=== PATIENT | female | born 1945 | race Caucasian/White ===

== ENCOUNTER 2022-07-20 16:25 | Outpatient (REF) | payer MEDICARE, SELFPAY ==
[2022-07-22 12:53] LABS: Immunoglobulin A 175 mg/dL (70-320)
[2022-07-23 05:52] LABS: Gliadin Deamidated IgA Ab <1.0 U/mL; Gliadin Deamidated IgG Ab <1.0 U/mL; Transglutaminase Ab IgG <1.0 U/mL; Transglutaminase IgA <1.0 U/mL
[2022-07-27 15:27] LABS: Endomysial IgA Antibody Negative (Negative)
== END 2022-07-20 16:26 | disposition home or self-care (01) ==
LOC: HO.LAB 16:25
PROVIDERS: PCP Internal Medicine; Visit Provider Internal Medicine
DX: R19.7 Diarrhea, unspecified (principal)
CPT/HCPCS: 36415; 82784; 86231; 86258; 86364

== ENCOUNTER 2022-08-30 09:22 | Day surgery (SDC) | payer MEDICARE, SELFPAY ==
[2022-08-30 09:39] VITALS: BMI 24.5
[2022-08-30 09:46] VITALS: BP 162/63; PULSE 54; RESP 16; TEMP 36.2; O2SAT 99
--- NOTE | 2022-08-30 10:45 | HO.ANESPROP2 ---
[facility] Past Medical History Medical History (Updated 08/30/22 @ 09:44 by Lucila Mitchell RN) Afib Anemia Elevated LFTs HTN (hypertension) IBS (irritable bowel syndrome) Non-Hodgkin lymphoma Non-insulin dependent diabetes mellitus Overactive bladder Sepsis Family History Family history of problems with anesthesia: No Surgical History Surgical History (Updated 08/30/22 @ 09:37 by Lucila Mitchell RN) History of knee surgery Hx of cholecystectomy Hx of colonoscopy S/P complete hysterectomy Status post bilateral knee replacements History of Problems with Anesthesia: No Social History Social History Patient Tobacco Use Status: Never used Tobacco Use of substances other than those prescribed or required for medical reasons: No Are you DNR?: No Advance Directives: No Advance Directives Information Provided: Yes Meds Allergies Allergy/AdvReac Type Severity Reaction Status Date / Time ciprofloxacin [Cipro] Allergy Unknown Hives Verified 08/30/22 09:39 Iodinated Contrast Media Allergy Unknown ANAPHYLAXIS Verified 08/30/22 09:39 [IV CONTRAST] levofloxacin [From LEVAQUIN] Allergy Unknown HIVES Verified 08/30/22 09:39 Sulfa (Sulfonamide Allergy Unknown HIVES Verified 08/30/22 09:39 Antibiotics) sulfamethoxazole Allergy Unknown HIVES Verified 08/30/22 09:39 [From BACTRIM] trimethoprim [From BACTRIM] Allergy Unknown HIVES Verified 08/30/22 09:39 ct dye Allergy Unknown Anaphylaxis Uncoded 08/30/22 09:39 iv dye Allergy Unknown Anaphylaxis Uncoded 08/30/22 09:39 Active Medications: Current Medications Sodium Biphosphate/Sodium Phosphate (Sodium Phosphate,Scurry-Dibasic 133 Ml Enema) 133 ml SD ONCE PRN PRN Reason: Poor Colonoscopy Prep Results Home Medications Medication Instructions Recorded Confirmed Last Taken Type apixaban 5 mg tablet (Eliquis) 1 tab PO BID 08/25/22 08/25/22 08/27/22 History flecainide 50 mg tablet 1 tab PO BID 08/25/22 08/25/22 08/30/22 08:00 History hydrochlorothiazide 12.5 mg tablet 1 tab PO DAILY 08/25/22 08/25/22 Unknown History lisinopril 20 mg tablet 1 tab PO BID 08/25/22 08/25/22 08/30/22 08:00 History metoprolol tartrate 25 mg tablet 0.5 tab PO 08/25/22 08/30/22 08:00 History Exam Exam Date and Time: August 30, 2022 1045 Height,Weight and Vital Signs: Height 5 ft 10 in Weight 77.564 kg Last Vital Signs Temp 97.1 F 08/30/22 09:46 Pulse 54 08/30/22 09:46 Resp 16 08/30/22 09:46 BP 162/63 H 08/30/22 09:46 Pulse Ox 99 08/30/22 09:46 O2 Del Method 08/30/22 09:46 Airway Mallampati Class: II TM Dist: >3cm Neck ROM: Full Assessment and Plan Assessment Anesthesia Assessment: Anesthesia Plan Discussed and Chart Reviewed Final Anesthetic Review Family History of Problems with Anesthesia: No History of Problems with Anesthesia: No NPO: Yes ASA Class: II Final Preanesthetic Review: No Changes in Pt Med Stat, Meds/Allgs Chart Reviewed, Consent Obtained/Reviewed and Anes Risks/Benef Reviewed Patient Risk: Low Procedure Risk: Low Anesthetic Plan Anesthetic Plan: MAC: Disposition: Standard PACU
[2022-08-30] MEDS: Lactated Ringers 1,000 ML 100 ML IVCONT (10:49)
[2022-08-30 11:47] VITALS: BP 126/52; PULSE 58; RESP 16; TEMP 36.1; O2SAT 98
--- NOTE | 2022-08-30 11:52 | P.BOP_ITS ---
Brief Operative Note Date of Service: 08/30/22 Pre-op diagnosis: Screening, diarrhea Post-op diagnosis: other (Colon polyp, R/O microscopic colitis) Procedure: Colonoscopy to the cecum and TI with biopsies, and bx/removal of polyp Surgeon: José Manuel Agosto Anesthesia: MAC Was an Microarray Operations Vice President used for this Procedure?: No Estimated blood loss (mL): 2.0 Pathology: other (A. Ascending colon B. Ascending colon polyp C. Descending colon) Condition: stable Disposition: PACU
[2022-08-30 12:02] VITALS: BP 133/52; PULSE 56; RESP 16; TEMP 36.1; O2SAT 100
--- NOTE | 2022-08-30 12:08 | OP_ITS ---
SURGEON: José Manuel Agosto MD INDICATIONS: The patient presents for evaluation of intermittent diarrhea, family history of colon cancer, colorectal cancer screening. Full consent has been obtained from her for this, including risks of bleeding and perforation. PREOPERATIVE DIAGNOSIS: POSTOPERATIVE DIAGNOSIS: PROCEDURE PERFORMED: Colonoscopy to cecum and terminal ileum with biopsies, and biopsy removal of polyp. ESTIMATED BLOOD LOSS: COMPLICATIONS: ANESTHESIA: Monitored anesthesia care. ASSISTANTS: SPECIMENS: PREOPERATIVE DIAGNOSES: Intermittent diarrhea, family history of colon cancer, colorectal cancer screening. POSTOPERATIVE DIAGNOSES: Intermittent diarrhea, family history of colon cancer, colorectal cancer screening, small colon polyp, rule out microscopic colitis, diverticulosis, and internal hemorrhoids. DESCRIPTION OF PROCEDURE: The patient was placed in the left lateral decubitus position. The digital rectal exam revealed no abnormalities. The Olympus video pediatric colonoscope was entered into the rectum and advanced easily to the cecum. Once in the cecum, I did identify normal-appearing cecal pouch with appendiceal orifice and a normal-appearing ileocecal valve. The terminal ileum was cannulated and appeared normal. The scope was withdrawn back in the colon. The entire cecum and ileocecal valve appeared normal. The scope was then slowly withdrawn assessing all mucosal surfaces carefully. Preparation was excellent. In the ascending colon was a flat approximately 3 or 4 mm polyp, which was biopsied and completely removed with a cold biopsy forceps. I did not visualize any other polyps, colitis, nor angiodysplasia. There was a mild amount of sigmoid diverticulosis. I did obtain random biopsies in the ascending and descending colon. In the rectum, scope was retroflexed visualizing internal hemorrhoids, but no other pathology. The rectal mucosa appeared normal. The scope was straightened and withdrawn from the patient. She tolerated the procedure well and was returned to the recovery area in stable condition. IMPRESSION: 1. Small colon polyp, status post biopsy and removal. 2. Rule out microscopic colitis. 3. Diverticulosis. 4. Internal hemorrhoids. PLAN: The results of the biopsies will be checked. Given these minimal findings, her multiple previous colonoscopies, and her age, I do not think she will need any further screening colonoscopies at this point. She will otherwise see me on a p.r.n. basis. She was advised to resume her Eliquis in 48 hours. She was advised not to use any aspirin or NSAIDs for least 1 week, but preferably long-term given that she is on the Eliquis. MD NORM Del Toro/DOMONIQUE / [phone]
[2022-08-30 12:17] VITALS: BP 117/60; PULSE 56; RESP 16; TEMP 36.1; O2SAT 98
== END 2022-08-30 13:24 | disposition home or self-care (01) ==
PROVIDERS: PCP Internal Medicine; Visit Provider Internal Medicine
PROC: 0DJD8ZZ Inspection of Lower Intestinal Tract, Via Natural or Artificial Opening Endoscopic (ICD-10-PCS; CPT 45378; principal; 2022-08-30 10:40)
DX: Z12.11 Encounter for screening for malignant neoplasm of colon (principal); D12.2 Benign neoplasm of ascending colon; K57.30 Diverticulosis of large intestine without perforation or abscess without bleeding; K64.8 Other hemorrhoids; R19.7 Diarrhea, unspecified; Z80.0 Family history of malignant neoplasm of digestive organs; I10 Essential (primary) hypertension; E11.9 Type 2 diabetes mellitus without complications; I48.91 Unspecified atrial fibrillation; Z79.01 Long term (current) use of anticoagulants; Z79.899 Other long term (current) drug therapy; Z88.1 Allergy status to other antibiotic agents; Z88.2 Allergy status to sulfonamides; Z88.8 Allergy status to other drugs, medicaments and biological substances
CPT/HCPCS: 45380; 88305

== ENCOUNTER 2023-06-21 14:50 | Emergency (ER) | payer MEDICARE, SELFPAY ==
--- NOTE | ~2023-06-21 | XR_ITS ---
EXAMINATION: XR KNEE, RIGHT CLINICAL INFORMATION: Knee pain after fall COMPARISON: None available. TECHNIQUE: Four views of the right knee. FINDINGS: Right total knee replacement has been performed and prosthetic components appear appropriate in position. Alignment is satisfactory. No fracture or dislocation. Very small suprapatellar effusion not excluded. XR/XR knee RT 3V IMPRESSION: Right total knee replacement. No acute bony pathology. Question small suprapatellar effusion.
--- NOTE | ~2023-06-21 | CT_ITS ---
STUDY: Unenhanced CT of the head, facial bones and cervical spine INDICATION: Head strike, on Sameera COMPARISON: 08/17/2018 brain TECHNIQUE: Continuous helical imaging obtained through the head, facial bones and cervical spine without IV contrast. Reconstructed images performed in coronal and sagittal planes. This CT examination was performed using dose optimization techniques as appropriate, variously including the following: *Automated exposure control *Adjustment of mA and/or kV according to patient size (this includes techniques or standardized protocols for targeted exams where dose is matched to indication/reason for exam; i.e. extremities or head) *Use of iterative reconstruction technique TOTAL EXAM DLP: 985 mGy-cm FINDINGS: HEAD: No intracranial hemorrhage, extra-axial fluid collections or cranial fractures identified. 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 No evolving infarct, mass effect or midline shift seen. There has been interval development of left temporal calcific densities adjacent to the inner table. These appear to be associated with 1.8 cm soft tissue mass. Findings were barely visible in 2012 lens extractions have been performed. Sinuses and mastoids are free of disease. No cranial fractures. Soft tissues are unremarkable. FACIAL BONES: Right facial, right periorbital and right forehead soft tissue swelling. Orbital, maxillary markham, zygomatic arches, nasal bones, anterior nasal spine, maxilla and mandible are intact. Mild webs within the maxillary sinuses, right greater than left. Right posterior nasopharyngeal asymmetric soft tissue. Oropharynx, hypopharynx unremarkable. Bilateral submandibular lymphadenopathy, largest node on the left measures 1.9 cm. 1 cm probable left intraparotid lymph node. Vascular calcifications. CERVICAL SPINE: C5-C6 disc space narrowing. No significant spinal canal or neural foraminal narrowings No fracture or traumatic subluxation. Alignment is satisfactory. Posterior elements are aligned, odontoid is intact and no prevertebral soft tissue swelling seen. Left thyroid calcifications. Nonspecific cervical lymph nodes. Vascular calcifications. Mild atelectasis lung apices. CT/CT cervical spine wo IV con IMPRESSION: Right facial, periorbital and forehead soft tissue swelling. No significant soft tissue hematomas, acute intracranial pathology, facial, cervical fractures or subluxations after fall. Interval development of potential partially calcified left temporal mass adjacent to the inner table, question meningioma. MRI recommended. Bilateral submandibular lymphadenopathy, left greater than right. Possible left intraparotid lymph node. Consider ultrasound. Indeterminate right posterior nasopharyngeal soft tissue density. Recommend direct visualization.
--- NOTE | 2023-06-21 15:00 | ED.HEATRA ---
HPI - Head Injury General Chief complaint: Fall Stated complaint: R Side Facial Injury 06/21/23 Time Seen by Provider: 06/21/23 17:56 Source: patient, RN notes reviewed and old records reviewed Mode of arrival: ambulatory Limitations: no limitations History of Present Illness HPI Narrative: A 77-year-old female presents for evaluation after a fall. The sidewalk hitting the right side her face. She denies any loss of consciousness. She reports ?eyelid there for just a 2nd to gather myself, but I was able to get myself up. I called my doctor to tell him that I fell and he told me to come to the hospital because of the blood thinner Patient is on Eliquis for AFib She denies any chest pain, shortness of breath, palpitations She has mild right knee pain after the fall No other complaints or concerns Related Data Home Medications Medication Instructions Recorded Confirmed apixaban 5 mg tablet (Eliquis) 1 tab PO BID 08/25/22 08/25/22 flecainide 50 mg tablet 1 tab PO BID 08/25/22 08/25/22 hydrochlorothiazide 12.5 mg tablet 1 tab PO DAILY 08/25/22 08/25/22 lisinopril 20 mg tablet 1 tab PO BID 08/25/22 08/25/22 metoprolol tartrate 25 mg tablet 0.5 tab PO 08/25/22 Allergies Allergy/AdvReac Type Severity Reaction Status Date / Time ciprofloxacin [Cipro] Allergy Unknown Hives Verified 08/30/22 09:39 Iodinated Contrast Media Allergy Unknown ANAPHYLAXIS Verified 08/30/22 09:39 [IV CONTRAST] levofloxacin [From LEVAQUIN] Allergy Unknown HIVES Verified 08/30/22 09:39 Sulfa (Sulfonamide Allergy Unknown HIVES Verified 08/30/22 09:39 Antibiotics) sulfamethoxazole Allergy Unknown HIVES Verified 08/30/22 09:39 [From BACTRIM] trimethoprim [From BACTRIM] Allergy Unknown HIVES Verified 08/30/22 09:39 ct dye Allergy Unknown Anaphylaxis Uncoded 08/30/22 09:39 iv dye Allergy Unknown Anaphylaxis Uncoded 08/30/22 09:39 Review of Systems Constitutional: Constitutional: Denies headache(s) ENT: Denies vertigo, Denies dizziness and Denies headache(s) Cardiovascular: Cardiovascular: Denies chest pain, Denies syncope, Denies rapid heart rate and Denies dyspnea Respiratory: Respiratory: Denies cough and Denies dyspnea Gastrointestinal: Gastrointestinal: Denies abdominal pain, Denies nausea and Denies vomiting Musculoskeletal: Musculoskeletal: Denies back pain Integumentary/Breasts: Skin/Breast: Reports other (Bruising) Neurologic: Denies vertigo, Denies dizziness, Denies syncope and Denies headache(s) PMFSH Past Medical History Medical History (Updated 06/21/23 @ 18:11 by Edgar Zhang) Anemia Sepsis Overactive bladder Non-Hodgkin lymphoma Afib IBS (irritable bowel syndrome) Elevated LFTs Non-insulin dependent diabetes mellitus HTN (hypertension) Surgical History Hx of breast surgery History of knee surgery Hx of colonoscopy Status post bilateral knee replacements Hx of cholecystectomy S/P complete hysterectomy Social History Social History Alcohol intake: never Patient Tobacco Use Status: Never used Tobacco Smoked in Last 30 Days: No Use of substances other than those prescribed or required for medical reasons: No Advance Directives: Yes Advance Directives Information Provided: No Advance Directives on File: No Physical Exam Vital Signs: Vital Signs: Last Vital Signs Temp 98.0 F 06/21/23 18:00 Pulse 62 06/21/23 18:00 Resp 18 06/21/23 18:00 BP 178/67 H 06/21/23 18:00 Pulse Ox 100 06/21/23 18:00 O2 Del Method Room Air 06/21/23 18:00 BMI result Body Mass Index 26.5 Const: General: healthy appearing, comfortable, no acute distress, alert and awake Nutritional Appearance: well nourished Orientation/consciousness: patient oriented x3 Eyes: Conjunctivae: conjunctivae normal Sclerae: sclerae normal Corneas: corneas normal Pupils: Equal, round and reactive pupils present EOM: EOMs intact bilaterally Neck: Neck: Yes full ROM Resp: Effort & Inspection: normal respiratory effort, able to speak in complete sentences and not labored Cardio: Rate: regular rate Rhythm: abnormal rhythm irregularly irregular Skin: General skin exam: elasticity normal Neuro: General: patient oriented x3 Cranial nerves: Yes CN's II-XII intact bilaterally, Yes Equal, round and reactive pupils present and Yes Bilaterally intact EOM present Cognition (Neuro): normal cognition Course Course Course Narrative: This is an RME: Additional HPI, ROS, PE not included below will be deferred to primary provider. This is a [id number]-female, with a hx of atrial fibrillation on eliquis, presenting to the ER with complaints of head strike. She had a mechanical fall where she struck her right knee and then struck her right side of her face. VSS. Right orbital ecchymosis noted. no midline c spine tenderness. TTP to the right knee. Plan: Head ct, c spine, facial bones, right knee xray ordered. Medications Administered Discontinued Medications Generic Name Dose Route Start Last Admin Trade Name Freq PRN Reason Stop Dose Admin Acetaminophen 650 mg 06/21/23 16:14 06/21/23 16:16 Acetaminophen 325 Mg Tablet PO 06/21/23 16:15 650 mg ONCE ONE Administration Medical Decision Making Medical Decision Making MDM Narrative: 77-year-old female presents for evaluation after a fall. She had a head strike no loss of consciousness. She has no neuro deficits. CT imaging shows no traumatic injuries. He x-ray of the right knee does not show any traumatic injury. Patient's CT scan of however show a left temporal mass consistent with a likely meningioma. I discussed this with the patient, this would be a unknown diagnosis to her. She denies any frequent headache, neuro deficits or signs or symptoms. She has no blurry vision, nausea. Made very clear to the patient that is supports she follows up with her primary doctor to have an MRI out patient basis. She understands this call tomorrow to schedule appointment Differential Diagnosis Differential Diagnoses: The differential diagnosis associated with the presentation includes Intracranial mass Calvarial fracture Contusion Hematoma Right knee pain Right knee dislocation Independent Interpretation I performed an independent interpretation of an: Plain X-Ray (No acute fracture of the right knee) and CT Scan (No intracranial hemorrhage) Radiology Impression Discussion of test interpretation with radiology: I have reviewed the radiologist's reading. (Left temporal mass possibly meningioma) Tests considered The following testing was considered but not selected: MRI of the brain, but this was felt to be appropriate for an outpatient basis Discharge Plan Discharge Clinical Impression: Contusion Patient Disposition: Home, Self-Care Instructions: Contusion in Adults (ED) Additional Instructions: Your CT scans and x-ray of your knee did not show any significant traumatic injuries. However, there was an incidental finding of a brain mass in the left temporal region This is appears most consistent with a meningioma This does need to be followed up with your primary doctor You need an MRI within the next few weeks it better evaluate this You may return to the ER for any new or worsening symptoms Apply ice to the sore area of bony and face. Use Tylenol for discomfort Prescriptions: No Action lisinopril 20 mg tablet 1 tab PO BID flecainide 50 mg tablet 1 tab PO BID metoprolol tartrate 25 mg tablet 0.5 tab PO hydrochlorothiazide 12.5 mg tablet 1 tab PO DAILY Eliquis 5 mg tablet 1 tab PO BID Interventions: ED Discharge Assessment Last Done: 06/21/23 18:37
[2023-06-21 15:02] VITALS: BP 147/108; PULSE 62; RESP 18; TEMP 36.2; O2SAT 100; BMI 26.5
[2023-06-21] MEDS: Acetaminophen 325 MG TABLET 650 MG PO (16:16)
--- NOTE | 2023-06-21 17:58 | PC.NURSE ---
patient a&ox3, vss, pt previously had scans which have been resulted- pt awaiting provider to review and discuss scans with her, pt currently denying pain/discomfort, friend at bedside.pt has notable ecchymosis and some mild swelling to rt face, will continue to monitor
[2023-06-21 18:00] VITALS: BP 178/67; PULSE 62; RESP 18; TEMP 36.7; O2SAT 100
== END 2023-06-21 18:37 | disposition home or self-care (01) ==
PROVIDERS: Emergency Provider Internal Medicine; PCP Internal Medicine
DX: S80.01XA Contusion of right knee, initial encounter (principal); S00.11XA Contusion of right eyelid and periocular area, initial encounter; W01.0XXA Fall on same level from slipping, tripping and stumbling without subsequent striking against object, initial encounter; M25.561 Pain in right knee; R93.0 Abnormal findings on diagnostic imaging of skull and head, not elsewhere classified; E11.9 Type 2 diabetes mellitus without complications; I10 Essential (primary) hypertension; I48.91 Unspecified atrial fibrillation; Z79.01 Long term (current) use of anticoagulants; Z79.899 Other long term (current) drug therapy; Y93.89 Activity, other specified; Y92.480 Sidewalk as the place of occurrence of the external cause; Y99.9 Unspecified external cause status
CPT/HCPCS: 70450; 70486; 72125; 73562; 99284

== ENCOUNTER 2025-05-15 20:09 | Observation (INO) | payer MEDICARE, SELFPAY ==
--- NOTE | ~2025-05-15 | MR_ITS ---
CLINICAL HISTORY: dizziness, weakness MR Brain without gadolinium Comparison: CT/SR - CT HEAD/BRAIN WO IV CON - 05/15/25 22:15 EDT Findings: No restricted diffusion. No intra-axial mass or hemorrhage. Redemonstration of a left temporal convexity 2.2 cm extra-axial dural-based lesion which demonstrated partial calcification on recent noncontrast head CT. No midline shift. No hydrocephalus. Vascular flow voids are intact. Mild generalized cerebral volume loss and mild periventricular subcortical T2/FLAIR hyperintensities consistent with chronic microvascular ischemic changes. Orbital contents are unremarkable. The sinuses and mastoid air cells are clear. No focal bone lesion. IMPRESSION: No acute intracranial disease. Mild generalized cerebral volume loss and chronic microvascular ischemic changes. Redemonstration of a left temporal convexity 2.2 cm extra-axial lesion, consistent with CT demonstrated partially calcified meningioma. This document has been electronically signed by: Juan Ahmadi MD on 05/16/2025 21:45:33
--- NOTE | ~2025-05-15 | CT_ITS ---
CLINICAL HISTORY: dizziness CT head without contrast Comparison: CT/REG/OR/SR - CT HEAD WITHOUT IV CONTRAST - 06/21/23 15:10 EDT Findings: No intra-axial mass, midline shift, hydrocephalus, or acute hemorrhage. Moderate atrophy-like change or white matter disease. Left basal ganglia chronic lacunar infarct again noted. The visualized paranasal sinuses and mastoid air cells are normal. The orbits are unremarkable. There is no acute fracture. IMPRESSION: 1. No acute intracranial findings. 2. Left basal ganglia chronic lacunar infarct. 3. Moderate atrophy-like change or white matter disease. This document has been electronically signed by: Juan Ahmadi MD on 05/15/2025 22:55:15
--- NOTE | ~2025-05-15 | US_ITS ---
EXAMINATION: BILATERAL CAROTID ULTRASOUND WITH DOPPLER HISTORY: dizziness, weakness COMPARISON: There are no prior studies available for comparison. TECHNIQUE: Real time and Color and Spectral doppler ultrasonography of the carotid and vertebral arteries was performed in multiple planes. FINDINGS: There is mild plaque in both carotid bulbs. Incidental note is made of subcentimeter thyroid nodules. VERTEBRAL FLOW DIRECTION: Antegrade bilaterally. PEAK SYSTOLIC VELOCITIES (in cm/sec): RIGHT: CCA: Prox: 118 Dist: 90.0 ICA: Prox: 110 Mid: 112 Dist: 89.5 ICA/CCA Ratio: 0.95 ECA: 152 Peak ICA end diastolic velocity (EDV): 25.4 LEFT: CCA: Prox: 98.8 Dist: 73.0 ICA: Prox: 99.4 Mid: 121 Dist: 109 ICA/CCA Ratio: 1.22 ECA: 121 Peak ICA end diastolic velocity (EDV): 29.8 US/US carotid duplex BI IMPRESSION: Findings consistent with 0-49% stenosis of the bilateral internal carotid arteries. Electronically signed by: José Manuel Crowley MD 05/16/2025 10:32 AM EDT
[2025-05-15 20:17] VITALS: BP 167/55; PULSE 70; RESP 16; TEMP 36.6; O2SAT 99; BMI 26.9
--- NOTE | 2025-05-15 20:22 | ECG_ITS ---
Test Reason : DIZZNESS Blood Pressure : */* mmHG Vent. Rate : 67 BPM Atrial Rate : 67 BPM P-R Int : 292 ms QRS Dur : 94 ms QT Int : 424 ms P-R-T Axes : 40 21 51 degrees QTcB Int : 448 ms Sinus rhythm with 1st degree A-V block Otherwise normal ECG When compared with ECG of 11-Feb-2013 11:04, No significant changes seen Referred By: Generic ED Physician Electronically Signed By: Az Davidson
[2025-05-15 20:26] LABS: Glucose, Whole Blood 196 mg/dL (60-115)
[2025-05-15 20:27] VITALS: BP 170/60; PULSE 82; O2SAT 100
[2025-05-15 20:37] LABS: MANUAL DIFF FLAG NO
[2025-05-15 20:38] LABS: Hematocrit 31.1 % (37.0-47.0); Hemoglobin 11.0 g/dl (12.0-16.0); Imm Gran Abs Auto 0.04 X10*3/uL (0.00-0.03); Imm Gran Pct Auto 0.6 % (0.0-0.4); Lymphocytes Absolute Auto 1.0 X10*3/uL (1.2-4.9); Mean Corpuscular HGB Conc 35.4 g/dl (31.0-35.0); Mean Corpuscular Hemoglobin 30.1 pg (27.0-33.0); Mean Corpuscular Volume 85.2 fL (80.0-98.0); NRBC Abs Auto 0.000 X10*3/uL (0.0-0.012); NRBC Pct Auto 0.0 /100WBC (0.0-0.2); Platelet Count 163 X10*3/uL (160-400); Red Blood Count 3.65 X10*6/uL (4.20-5.50); White Blood Count 7.3 X10*3/uL (4.8-10.8)
--- OUTSIDE RECORDS SUMMARY | 2025-05-15 20:41 | XMS_ITS | Clinical Summary ---
Author Organization [facility] Address [address] [place] [id number] Phone Care Team Providers Care Waste Reclaimer Name Role Phone Fili Choi MD Primary Care Provider Allergies Active Allergy Reactions Criticality Noted Date Comments Cephalexin 01/11/2018 Keflex Ciprofloxacin 01/11/2018 Iodinated Contrast Media 08/10/2017 Levofloxacin 08/10/2017 Levaquin Nitrofurantoin Monohyd/M-Cryst Hives 12/10 Macrobid Sulfa (Sulfonamide Antibiotics) 05/2017 Sulfamethoxazole-Trimethoprim 2016 Bactrim Medications apixaban (ELIQUIS) 5 mg tablet Take by mouth every 12 (twelve) hours. Active MINERALS ORAL Take by mouth. Active hydroCHLOROthiazid e 12.5 mg tablet TAKE ONE TABLET BY MOUTH EVERY DAY 90 tablet 3 4 Active metoprolol tartrate (LOPRESSOR) 25 mg tablet Take 0.5 tablets (12.5 mg total) by mouth 2 (two) times a day. Active atorvastatin (LIPITOR) 20 mg tabletIndications: Coronary artery calcification Take 1 tablet (20 mg total) by mouth 1 (one) time each day. 30 each 11 5 02/02/20 26 Active flecainide (TAMBOCOR) 50 mg tablet TAKE ONE TABLET BY MOUTH TWICE A DAY 180 tablet 2 5 Active lisinopriL (PRINIVIL,ZESTRIL) 20 mg tablet TAKE ONE TABLET BY MOUTH TWICE A DAY 180 tablet 2 5 Active Active Problems Problem Noted Date Diagnosed Date Diabetes mellitus type 2, co ntrolled, without complications [place] [place] [facility] V28) 05/30/2024 Type 2 diabetes mellitus wit hout complication, without long-term current use of insulin ([facility] V24, [facility] V28) 05/30/2024 Meningioma ([facility] [place] [facility] [place] 09/07/2023 Atrial fibrillation ([facility] [place] [facility] [place]) 1 10/22/2018 Assessment & Plan (01/03/2025 10:50 AM EDT): Patient denies perception of recurrence of arrhythmia since she wore her monitor. As outlined above 30-day R OCT did not reveal any sustained atrial or ventricular arrhythmias, pauses or prolonged episodes of bradycardia. The patient is wondering if she can take an extra dose of metoprolol should she experience a prolonged episode of atrial fibrillation. He has shared decision making, we have decided that she will take an extra dose of metoprolol should she feel increased episode of palpitations. I did encourage patient to seek ER should she have associated symptoms of dizziness, lightheadedness, presyncope, syncope or shortness of breath. Triggers of atrial fibrillation such as increased caffeine or alcohol intake, dehydration, untreated sleep apnea, infection were discussed with patient. She will continue on her current dose of Eliquis as her age is less than 80 years and her weight is greater than 60 kg. Her [id number] score is 4 for age greater than 75, gender modifier and hypertension. Educated on risks and benefits of continuing with anticoagulation including increased risk for hemorrhage and decreased risk for stroke. Encouraged to seek emergent medical attention should the patient sustain a fall involving a head strike. The patient understands these risks and agrees to continue. At this time, she will continue on her current dose of flecainide and metoprolol. We will be updating stress testing to further evaluate for any structural abnormalities in light of her complaints of chest discomfort. Benign paroxysmal positional vertigo 08/22/2019 Diabetic peripheral neuropathy ([facility] [place], [facility] V28) 08/22/2019 Difficult or painful urination 08/22/2019 Discharge from [facility] 08/22/2019 Essential hypertension 08/22/2019 Overview (05/30/2024): Last Assessment & Plan: Well-controlled during today's exam with a reading of 120/82. Will continue on her current dose of lisinopril and hydrochlorothiazide. Educated on the importance of diet lifestyle modification to help further assist in lowering blood pressure. Encouraged to follow low-salt low-fat diet, make purposeful strides towards weight loss, and engage in routine aerobic exercise as tolerated. Assessment & Plan (01/03/2025 10:50 AM EDT): Well-controlled during today's exam with a reading of 128/66. She will continue on her current dose of lisinopril and hydrochlorothiazide. Educated on the importance of diet lifestyle to help further assist in reducing blood pressure. The patient was encouraged to follow low-salt low-fat diet, make purposeful strides towards weight loss, and engage in routine aerobic exercise as tolerated. Follicular low grade B-cell lymphoma ([facility] V24, [facility] V28) 08/22/2019 Gastroesophageal reflux disease 08/22/2019 Left sided abdominal pain 08/22/2019 Osteoarthritis of knee 08/22/2019 Recurrent urinary tract infection 08/22/2019 Retinal tear 08/22/2019 Urge incontinence of urine 08/22/2019 Urinary tract infectious disease 08/22/2019 Anemia 08/24/2017 Follicular lymphoma ([facility] V24, [facility] V28) 1 10/12/2016 Obstructive sleep apnea syndrome 06/27/2017 Assessment & Plan (01/03/2025 10:50 AM EDT): We did discuss that the increase in heart palpitations could be attributed to untreated sleep apnea. She does inform me that she had historically she had tried to be compliant with her CPAP however it has been greater than 5 years and she has used machine. At this time she is not interested in pursuing updated sleep study as she does not feel that she could tolerate CPAP therapy at this time. She does understand that if she has increasing frequency and duration of her palpitations this could be an avenue worth exploring. Intraductal papilloma of breast 07/04/2016 Osteoporosis 09/29/2015 Social History Tobacco Use Types Packs/Day Years Used Date Smoking Tobacco: Never Smokeless Tobacco: Never Alcohol Use Standard Drinks/Week Comments No 0 (1 standard drink = 0.6 oz pur e alcohol) Comments Unknown Sex and Gender Information Value Date Recorded Sex Assigned at Not on file Legal Sex Female 8:39 PM EST Gender Identity Not on file Sexual Orientation Not on file Obstetrics History Last Filed Vital Signs Vital Sign Reading Time Taken Comments Blood Pressure 140/58 01/24/2025 10:00 AM EDT Pulse 69 01/03/2025 8:55 AM EDT Temperature 36.6 C (97.8 F) 09/07/2024 11:41 AM EST Respiratory Rate - - Oxygen Saturation 99% 01/03/2025 8:55 AM EDT Inhaled Oxygen Concentration - - Weight 83 kg (183 lb) 01/24/2025 9:46 AM EDT Height 177.8 cm (5' 10 ) 01/24/2025 9:46 AM EDT Body Mass Index 26.26 01/24/2025 9:46 AM EDT Plan of Treatment Upcoming Encounters Date Type Department Care Team (Late st Contact Info) Description 07/31/2025 9:50 AM EDT Office Visit [facility] [address] [facility] [address] [place] [address] Kristopher Greer MD [address] [address] 09/06/2025 11:30 AM EST Office Visit [facility] [address] [place] [address] Krista Marie MD [address] [place] [address] Health Maintenance Due Date Last Done Comments Diabetes: Annual Foot Exam 1955 Diabetes: Annual Retina Eye Exam 1955 Cholesterol Screening (Lipid Panel) 09/11/2022 Falls Risk Assessment 09/11/2022 Hepatitis C Screening 09/11/2022 Medicare Annual Wellness Visit 09/11/2022 Social Influencers of Health Screening 09/11/2022 Diabetes: Annual Urine Albumin-Creatinine Ratio (uACR) 09/17/2022 Diabetes: Blood Sugar Control Test (HGBA1C) 09/17/2022 RSV Immunization Adult Patients (1 - 1-dose 75+ series) 2022 COVID-19 Vaccine (6 - 2023- season) 2024 08/11/2023, 07/09/2022, 08/24/2021, Additional history exists Depression Screening 10/03/2024 Influenza Vaccine (#1) 2025 , 07/07/2023, 07/16/2022, Additional history exists Diabetes: Annual GFR (Glomerular Filtration Rate) 08/28/2025 08/28/2024 Hypertension/CHF/CAD Annual BMP Blood Test 08/28/2025 08/28/2024 Osteoporosis Screening (Bone Density Screening) 09/29/2025 09/29/2015 DTaP,Tdap,and Td Vaccines (3 - Td or Tdap) 10/19/2033 10/19/2023, 08/08/2014 Pneumococcal Vaccine: 50+ Years Completed 11/23/2016, 08/26/2015, 08/26/2010 Zoster Vaccines Completed 09/23/2018, 07/03, 09/23/2008 Breast Cancer Screening Discontinued 08/11/2020 HIB Vaccines Aged Out No longer eligi ble based on patient's age to complete this topic HPV Vaccines Aged Out No longer eligi ble based on patient's age to complete this topic Hepatitis A Vaccines Aged Out No long er eligible based on patient's age to complete this topic Hepatitis B Vaccines Aged Out No long er eligible based on patient's age to complete this topic IPV Vaccines Aged Out No longer eligi ble based on patient's age to complete this topic MMR Vaccines Aged Out No longer eligi ble based on patient's age to complete this topic Meningococcal ACWY Vaccine Aged Out N o longer eligible based on patient's age to complete this topic Meningococcal B Vaccine Aged Out No l onger eligible based on patient's age to complete this topic RSV Immunization Patients Under 20 months Aged Out No longer eligible based on patient's age to complete this topic Varicella Vaccines Aged Out No longer eligible based on patient's age to complete this topic Procedures Procedure Name Priority Date/Time Associated Diagnosis Comments COMPREHENSIVE METABOLIC PANEL Routine 08/28/2024 2:59 PM EST Other type of follicular lymphoma of lymph nodes of multiple regions (CMS/HCC V24, CMS/HCC V28) from Last 3 Months or Most Recently Relevant to Health Maintenance Results * (ABNORMAL) Comprehensive metabolic panel (08/28/2024 2:59 PM EST) Sodium 137 133 - 145 mmol/L LAB CHEMISTRY METHOD 08/28/2024 5:00 PM [facility] Potassium 4.2 3.5 - 5.5 mmol/L LAB CHEMISTRY METHOD 08/28/2024 5:00 PM [facility] Chloride 104 96 - 110 mmol/L LAB CHEMISTRY METHOD 08/28/2024 5:00 PM [facility] CO2 28 21 - 32 mmol/L LAB CHEMISTRY METHOD 08/28/2024 5:00 PM [facility] Anion Gap 5 3 - 11 LAB CHEMISTRY METHOD 08/28/2024 5:00 PM [facility] Glucose 124(H) 70 - 100 mg/dL LAB CHEMISTRY METHOD 08/28/2024 5:00 PM [facility] BUN 25 5 - 25 mg/dL LAB CHEMISTRY METHOD 08/28/2024 5:00 PM [facility] Creatinine 1.04 0.50 - 1.10 mg/dL LAB CHEMISTRY METHOD 08/28/2024 5:00 PM [facility] eGFR 56(L) >=60 mL/min/1. 73m2 LAB CHEMISTRY METHOD 08/28/2024 5:00 PM [facility] Comment:Calculation based on the Chronic Kidney Disease Epidemiology Collaboration (CKD-EPI) equation refit without adjustment for race. BUN/Creatinine Ratio 24.0 LAB CHEMISTRY METHOD 08/28/2024 5:00 PM [facility] Calcium 9.7 8.5 - 10.5 mg/dL LAB CHEMISTRY METHOD 08/28/2024 5:00 PM [facility] AST (SGOT) 20 10 - 42 unit/L LAB CHEMISTRY METHOD 08/28/2024 5:00 PM [facility] ALT (SGPT) 29 10 - 60 unit/L LAB CHEMISTRY METHOD 08/28/2024 5:00 PM [facility] Alkaline Phosphatase 75 42 - 121 unit/L LAB CHEMISTRY METHOD 08/28/2024 5:00 PM [facility] Total Protein 7.1 6.0 - 8.0 g/dL LAB CHEMISTRY METHOD 08/28/2024 5:00 PM [facility] Albumin 4.0 3.2 - 5.0 g/dL LAB CHEMISTRY METHOD 08/28/2024 5:00 PM [facility] Total Bilirubin 0.3 0.0 - 1.4 mg/dL LAB CHEMISTRY METHOD 08/28/2024 5:00 PM [facility] Blood Venous blood specimen / Unknown Venipuncture / Unknown 08/28/2024 2:59 PM EST 08/28/2024 4:36 PM EST Krista Marie MD LAB BLOOD ORDERABLE S Final Result [facility] [address] [place] [address], from Last 3 Months or Most Recently Relevant to Health Maintenance Insurance MEDICARE [facility] Care Teams Waste Reclaimer Relationship Specialty Start Date End Date Fili Choi MD [address] [facility] [address] [place], [place] PCP - General 08/17/13
--- OUTSIDE RECORDS SUMMARY | 2025-05-15 20:41 | XMS_ITS | Patient Health Record ---
Author Organization [facility] Address [address] [place] [address] Care Team Providers Care Top Ironer Name Role Phone Fili Choi MD Primary Care Provider Unav ailable Jody Carmen Unavailable [phone] Allergies Allergen (clinical drug ingredient) Drug/Non Drug Allergy documented on EMR Reaction Allergy Type Onset Date Status CT scan dye (uncoded) Unknown Allergy Active sulfamethoxazole / trimethoprim Bactrim Unknown Drug Allergy Active ciprofloxacin Cipro Unknown Drug Allergy Act anabelle Keflex Unknown Drug Allergy Active Sulfacet-R Unknown Drug Allergy Active Tomatoes hives Allergy Active Reason For Referral Diagnosis 1 Type 2 diabetes johanny itus with diabetic polyneuropathy (E11.42) Diagnosis 2 Tinea unguium (B35.1 ) Diagnosis 3 Other hammer toe(s) (acquired), right foot (M20.41) Diagnosis 4 Other hammer toe(s) (acquired), left foot (M20.42) Diagnosis 5 Pain in left toe(s) (M79.675) Diagnosis 6 Pain in right toe(s) (M79.674) Diagnosis 7 Pain in left foot (M 79.672) Diagnosis 8 Posterior tibial ten don dysfunction (PTTD) of left lower extremity (M76.822) Diagnosis 9 Neuritis (M79.2) Referring Provider First Name Fili Referring Provider Last Name Jimbo Referred Organization [facility] Maurilio Referred Provider Jody Carmen Referred Address [address] [facility],[place], [place],[address], Referred Provider Specialty Podiatry Referral Priority Routine Medications Medication SIG (Take, Route, Frequency, Duration) Notes Start Date End Date Status Gabapentin 300 MG 1 capsule Orally twice a day; Duration: 30 day(s) 04/15/2021 Not-Taking Metoprolol Tartrate Active Cranberry Not-Taking Extra Depth Orthopedic Shoes (1 Pair) with Customized Heat Molded Multidensity Innersoles (3 Pair) as directed Dx: NIDDM/Polyneuropathy (E11.42), Hammertoe Foot Deformity (M20.41,M20.42), Preulcerative Skin Lesion(s) (L85.1 06/12/2024 Active oxyBUTYnin Chloride ER Not-Taking Mantoloking 3-6-9 Not-Taki ng Multivitamin Active Pradaxa Not-Taking Vitamin C Active metFORMIN HCl 500 MG Orally once a day Active Milk Thistle Not-Gordy ing Estrace Not-Taking MSM Not-Taking diphenhydrAMINE HCl Not-Taking Multi Minerals-Amino Acids Not-Taking methylPREDNISolone N ot-Taking Flecainide Acetate 50 MG Orally twice a day Active Astragalus Root Not- Taking Eliquis 5 MG as directed Orally twice a day Active Biotene Dry Mouth Sensitive Not-Taking zzzCompression Stockings 20-30mm Hg . . .; Duration: . Not-Takin g hydroCHLOROthiazide 25 MG Orally Once a day Active Lisinopril 40 MG 1 tablet Orally Once a day Active Immunizations Vaccine Route Administration Date Status Comme nts Influenza Unknown 07/27/2015 Administered Influenza Unknown 08/03/2017 Administered Influenza Unknown 07/03/2018 Administered Influenza Unknown 07/03/2019 Administered Influenza Unknown 07/03/2020 Administered Influenza Unknown 08/03/2022 Administered Influenza Unknown 06/03/2023 Administered COVID-19 Moderna Vaccine Unknown 10/08/2020 Administered Second Dose: 03/23 Social History Tobacco Use: Social History Observation Description Date Details (start date - stop date) Never Smoker NA - NA Tobacco Use/Smoking Question Answer Notes Are you a: nonsmoker Additional Findings: Tobacco Non-User Current no n-smoker Alcohol Screen Question Answer Notes Did you have a drink containing alcohol in the p ast year? No Points 0 Interpretation Negative Tobacco use other than smoking: Question Answer Notes Are you an other tobacco user? No Problems Problem Type SNOMED Code ICD Code Onset Dates Problem Status W/U Status Risk Notes Problem Acquired hammer toe of right foot (6474334325324066 ) Other hammer toe(s) (acquired), right foot (M20.41) Active confirmed Problem Acquired hammer toe of left foot (9931565131904205 ) Other hammer toe(s) (acquired), left foot (M20.42) Active confirmed Problem Polyneuropathy due to type 2 diabetes mellitus (884107298) Type 2 diabetes mellitus with diabetic polyneuropathy (E11.42) Active confirmed Vital Signs Blood pressure diastolic 65 mm Hg 06/12/2024 Height 5ft 10in in 06/12/2024 Blood pressure systolic 125 mm Hg 06/12/2024 Weight 180 lbs 06/12/2024 BMI 25.82 kg/m2 06/12/2024 Encounters Encounter Location Date Provider Diagnosis [facility] [place] [address] [place] [address] 06/12/2024 Jody Kermit Type 2 diabetes mellitus with diabetic polyneuropathy E11.42 ; Other hammer toe(s) (acquired), right foot M20.41 and Other hammer toe(s) (acquired), left foot M20.42 Assessments Encounter Date Diagnosis (ICD Code) Assessment Notes Treatment Notes Treatment Clinical Notes Section Notes 06/12/2024 Type 2 diabetes mellitus with diabetic polyneuropathy (ICD-10 - E11.42) 06/12/2024 Other hammer toe(s) (acquired), right foot (ICD-10 - M20.41) Patient Educated with: DIABETIC FOOT CARE INSTRUCTIONS. pdf (DIABETIC FOOT CARE INSTRUCTIONS. pdf) 06/12/2024 Other hammer toe(s) (acquired), left foot (ICD-10 - M20.42) Plan Of Treatment Pending Test Test Name Order Date X ray : Foot, left 3V 09/01/2018 X ray : Foot, left 3V 04/15/2021 [id number] NAIL, 6 OR MORE 07/27/2016 [id number] NAIL, 6 OR MORE 01/27/2016 [id number] NAIL, 6 OR MORE 04/27/2016 [id number] NAIL, 1-5 12/07/2017 [id number] SKIN LESIONS, 2 TO 4 04/27/20 16 [id number] SKIN LESIONS, 2 TO 4 01/27/20 16 [id number] SKIN LESIONS, 2 TO 4 07/27/20 16 [id number]-[id number] SKIN LESIONS, 2 TO 4 12/08/19 18 Next Appt Details Provider Name:Jody Dawson Stacy dawson, 06/18/2025 11:00:00 AM, [address] [facility], [place], [address], Insurance Providers Payer Name Payer Address Payer Phone Subscriber Number Group Number Insured Name Patient Relationship to Insured Coverage Start Date Coverage End Date Medicare National Govt [employer] [address] [facility] [place] [address] [id number] Jolene Shah Self - patient is the insured [employer] [address] [place] [address] [id number] Jolene Shah Self - patient is the insured Medical (General) History Medical History History ICD Code Diverticulosis Anemia Arthritis Back,Hip,and Knee pain Cancer type II diabetes High blood pressure Warts Measles Mumps Chicken pox Joint implants/screws Transfusions Surgical History Surgery Date(Month/Year) knee surgery 2012 hysterectomy Hospitalization History Reason Date(Month/Year) [facility] - [facility] 05/2018 [facility]- [place]ell hit head 06/21/23 [facility] [place] - pt fell 08/17/18
--- OUTSIDE RECORDS SUMMARY | 2025-05-15 20:41 | XMS_ITS | Clinical Summary ---
Author Organization [facility] Address [address] [place] [address] Care Team Providers Care Salesperson Burial Plots Name Role Phone Fili Choi MD Primary Care Provider [phone] Allergies Active Allergy Reactions Criticality Noted Date Comments Sulfamethoxazole-Trimethoprim 2016 Ciprofloxacin 01/11/2018 Iodinated Contrast Media 08/10/2017 Cephalexin 01/11/2018 Levofloxacin 08/10/2017 Nitrofurantoin 01/11/2018 Sulfa Antibiotics 08/10/2017 Medications Medication Sig Dispensed Refills Start Date End Date Status lisinopril (PRINIVIL,ZESTRIL) tablet 40 mg Take 40 mg by mouth daily. 0 Active CRANBERRY, VACC OXYCOCCUS, PO Take by mouth daily. 0 Active Lactobacillus Rhamnosus, GG, (CULTURELLE PO) Take by mouth. 0 Active metoprolol succinate (TOPROL-XL) 24 hr tablet 50 mg Take 50 mg by mouth daily. 0 Active Trace Min [id number] (MINERALS PO) Take by mouth. 0 Active flecainide (TAMBOCOR) 50 MG tablet Take 50 mg by mouth 2 (two) times a day. 0 Active apixaban (ELIQUIS) 5 MG TABS tablet Take by mouth every 12 (twelve) hours. 0 Active Active Problems Problem Noted Date Diagnosed Date Meningioma 09/07/2023 Atrial fibrillation 08/22/2019 Benign paroxysmal positional vertigo 08/22/2019 Diabetic peripheral neuropathy 08/22/2019 Difficult or painful urination 08/22/2019 Discharge from nipple 08/22/2019 Essential hypertension 08/22/2019 Follicular low grade B-cell lymphoma 08/22/2019 Gastroesophageal reflux disease 08/22/2019 Left sided abdominal pain 08/22/2019 Menopause present 08/22/2019 Osteoarthritis of knee 08/22/2019 Recurrent urinary tract infection 08/22/2019 Retinal tear 08/22/2019 Urge incontinence of urine 08/22/2019 Urinary tract infectious disease 08/22/2019 Anemia 08/24/2017 Follicular lymphoma 08/12/2017 Obstructive sleep apnea syndrome 06/27/2017 Intraductal papilloma of breast 07/04/2016 Osteoporosis 09/29/2015 Diabetes mellitus type 2, un controlled, without complications Type 2 diabetes mellitus wit hout complication, without long-term current use of insulin Family History Medical History Relation Name Comments Cancer Brother colon Cancer Father pancreas Relation Name Status Comments Brother Father Social History Tobacco Use Types Packs/Day Years Used Date Smoking Tobacco: Never Smokeless Tobacco: Never Alcohol Use Standard Drinks/Week Comments No 0 (1 standard drink = 0.6 oz pur e alcohol) Sex and Gender Information Value Date Recorded Sex Assigned at Not on file Gender Identity Not on file Sexual Orientation Not on file Job Start Date Occupation Industry Not on file Not on file Not on file Last Filed Vital Signs Vital Sign Reading Time Taken Comments Blood Pressure 138/58 09/07/2023 10:43 AM EST Pulse 60 09/07/2023 10:43 AM EST Temperature 36.3 C (97.4 F) 09/07/2023 10:43 AM EST Respiratory Rate - - Oxygen Saturation 98% 09/07/2023 10:43 AM EST Inhaled Oxygen Concentration - - Weight 87.4 kg (192 lb 9.6 oz) 09/07/2023 10:43 AM EST Height 175.3 cm (5' 9 ) 09/07/2023 10:43 AM EST Body Mass Index 28.44 09/07/2023 10:43 AM EST Plan of Treatment Health Maintenance Due Date Last Done Comments Hepatitis C Screening 1945 COVID-19 Vaccine (#1) 1952 Depression Screening 1959 Preventative Health Evaluation 1965 Fall Risk Assessment 2012 Osteoporosis Screening (DEXA Scan) 2012 RSV Adult > 60+ Yrs or (1 - 1-dose 75+ series) 2022 DTap / Tdap / Td (2 - Td or Tdap) 08/08/2024 08/08/2014 Influenza Vaccine (#1) 2025 , 07/08/2020, 07/26/2019, Additional history exists Pneumococcal Vaccine Completed 11/23/2016, 08/26/2015, 08/26/2010 Shingrix-Zoster Vaccine Completed 09/23/2018, 07/21 Hepatitis B Vaccines Aged Out No long er eligible based on patient's age to complete this topic RSV Ped < 20 months Aged Out No longe r eligible based on patient's age to complete this topic Care Teams Salesperson Burial Plots Relationship Specialty [place] [address] [place] [id number] PCP - General Internal Medicine 08/04/17
--- OUTSIDE RECORDS SUMMARY | 2025-05-15 20:42 | XMS_ITS | Patient Health Record ---
Author Organization [facility] [place] Address [address] [place] [address] Care Team Providers Care Sexer Name Role Phone Fili Choi MD Primary Care Provider UnaJosé Manuel Bravo Unavailable [phone] Allergies Allergen (clinical drug ingredient) Drug/Non Drug Allergy documented on EMR Reaction Allergy Type Onset Date Status Levaquin Unknown Drug Allergy Active ciprofloxacin Cipro Unknown Drug Allergy Act anabelle sulfamethoxazole / trimethoprim Bactrim Unknown Drug Allergy Active Ct Scan Dye (uncoded) Unknown Allergy Active Sulfa Unknown Drug Allergy Active Reason For Referral No Information Medications Medication SIG (Take, Route, Frequency, Duration) Notes Start Date End Date Status Co Q-10 Active Ashwag[place]ha Active Berberine Complex Ac tive Eliquis 5 MG TAKE ONE TABLET BY MOUTH TWICE A DAY Oral for 90 Active Flecainide Acetate 50 MG TAKE ONE TABLET BY MOUTH TWICE A DAY Oral for 90 Active Lisinopril 20 MG 1 tablet Orally twic e a day Active Vitamin C Active Milk Thistle Active MSM Active Metoprolol Succinate ER 25 MG 1 tablet O rally twice a day Active hydroCHLOROthiazide 12.5 MG Oral for 90 Active Metoprolol Tartrate 25 MG TAKE ONE-HALF TABLET BY MOUTH TWICE A DAY IN THE MORNING AND IN THE EVENING Oral for 90 Active Immunizations Vaccine Route Administration Date Status Comme nts Influenza Unknown 07/16/2022 Administered Problems Problem Type SNOMED Code ICD Code Onset Dates Problem Status W/U Status Risk Notes Problem Colon cancer screening (486049724) Colon cancer screening (Z12.11) Active confirmed Problem Irritable bowel syndrome (68850451) Irritable bowel syndrome (K58.9) Active confirmed Problem Diarrhea (20588396) Diarrhea (R19.7) Active confirmed Problem History of polyp of colon (situation) (835467815) History of colon polyps (Z86.010) Active confirmed Problem Family History of Cancer of Colon (Situation) (062535811) Family history of colon cancer (Z80.0) Active confirmed Problem Diverticulosis of sigmoid colon (620877798) Diverticulosis of sigmoid colon (K57.30) Active confirmed Plan Of Treatment Pending Test Test Name Order Date CELIAC PANEL #10 07/20/2022 Pathology 08/30/2022 Future Test Test Name Order Date COLONOSCOPY 01/14/2015 COLONOSCOPY 07/20/2022 Insurance Providers Payer Name Payer Address Payer Phone Subscriber Number Group Number Insured Name Patient Relationship to Insured Coverage Start Date Coverage End Date MEDICARE OF [place] [address] [place] [address] [id number] SHERIF MCINTYRE Self - patient is the insured [employer] CLAIMS [address] [place] [address] [phone] [id number] SHERIF MCINTYRE Self - patient is the insured Medical (General) History Medical History History ICD Code Colonoscopy with removal of a hyperplastic [place] [address] Lars Kidd and a negative colonoscopy [place] [address] Gomez 10/16/2009 Colonoscopy with me --neg exept for an inflammatory polyp, diverticulosis, and internal hemorrhoids Hypertension NIDDM History of elevated LFT'S--h eterozygote for hemochromatosis---has not needed phlebotomy nor liver biopsy--w/u otherwise negative--c/w fatty liver Irritable bowel syndrome Atrial fibrillation Denies AR,CVA,Lung disease,renal disease Non-Hodgkin's lymphoma 4-sees Dr. Otoole at [facility]--currently observing--she has not required any type of treatment Sepsis and septic arthritis in knees as below Overactive bladder Negative screening colonoscopy with me i n March of 2015 Surgical History Surgery Date(Month/Year) Bilateral knee replacements in 2006 and 2009--then had a sepsis in 2012 and bilateral knee infections requiring surgeries and drainage, with revisions Cholecystectomy Complete hysterectomy
[2025-05-15 20:50] LABS: Alanine Aminotransferase 20 U/L (0-31); Albumin Level 4.6 g/dL (3.5-5.0); Alkaline Phosphatase 65 U/L (39-117); Anion Gap 18 (12-20); Aspartate Amino Transferase 23 U/L (5-31); Blood Urea Nitrogen 36 mg/dL (9-16); Calcium 9.6 mg/dL (8.4-10.2); Carbon Dioxide 24 mmol/L (22-29); Chloride 102 mmol/L (96-108); Creatinine Clr Calc Pharmacy 49.4; Estimated Glomerular Filt Rate 47; Potassium 4.5 mmol/L (3.3-5.1); Sodium 139 mmol/L (135-145); Total Protein 7.1 g/dL (6.5-8.0)
[2025-05-15 20:57] LABS: Troponin-I High Sensitivity 4.2 ng/L (<3.5-17.0)
[2025-05-15 22:32] VITALS: BP 155/51; PULSE 72; RESP 16; TEMP 36.6; O2SAT 98
--- NOTE | 2025-05-15 23:52 | PC.NURSE ---
stand-pivot to wheelchair to bathroom out of caution. states no symptoms with satnding up. still complains of abnormal vision in left eye - pt states it is difficult to describe, not blurry.
[2025-05-16] VITALS (11 sets, daily range): BP systolic 144–182; BP diastolic 53–74; PULSE 59–72; RESP 11–18; TEMP 36.1–36.6; O2SAT 96–99
--- NOTE | 2025-05-16 00:44 | ED.DIZZY ---
HPI - Dizziness General Chief Complaint: Dizziness Stated Complaint: dizziness Time Seen by Provider: 05/16/25 00:40 Source: patient and EMS Mode of arrival: EMS Limitations: no limitations History of Present Illness ED Provider: Estiven SEPULVEDA HPI Narrative: The patient is a 79-year-old female with a self-reported history of diabetes, lymphoma, hypertension, atrial fibrillation on Eliquis, and meningioma, presenting to the ED for evaluation of dizziness. The patient reports she has dealt with chronic baseline waxing and waning lightheadedness for years, which she has always attributed to either her meningioma or blood sugars. The patient reports today she woke with her baseline lightheadedness, however while performing her morning exercises she noted she felt severely fatigued, reports feeling not quite herself. 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 The patient denies associated headache, focal neurological deficit, chest pain, shortness of breath, cough, abdominal pain, vomiting, or diarrhea. The patient reports over the past few weeks she has been experiencing sinus pressure bilaterally, [id number] with mild clear rhinorrhea, denies associated sore throat. Related Data Home Medications ?Medication ?Instructions ?Recorded ?Confirmed apixaban 5 mg tablet (Eliquis) 1 tab PO BID 08/25/22 08/25/22 flecainide 50 mg tablet 1 tab PO BID 08/25/22 08/25/22 hydrochlorothiazide 12.5 mg tablet 1 tab PO DAILY 08/25/22 08/25/22 lisinopril 20 mg tablet 1 tab PO BID 08/25/22 08/25/22 metoprolol tartrate 25 mg tablet 0.5 tab PO 08/25/22 Allergies Allergy/AdvReac Type Severity Reaction Status Date / Time ciprofloxacin (Cipro) Allergy Unknown Hives Verified 05/15/25 20:19 Iodinated Contrast Media (IV Allergy Unknown ANAPHYLAXIS Verified 05/15/25 20:19 CONTRAST) levofloxacin (From LEVAQUIN) Allergy Unknown HIVES Verified 05/15/25 20:19 Sulfa (Sulfonamide Allergy Unknown HIVES Verified 05/15/25 20:19 Antibiotics) sulfamethoxazole (From Allergy Unknown HIVES Verified 05/15/25 20:19 BACTRIM) trimethoprim (From BACTRIM) Allergy Unknown HIVES Verified 05/15/25 20:19 ct dye Allergy Unknown Anaphylaxis Uncoded 05/15/25 20:19 iv dye Allergy Unknown Anaphylaxis Uncoded 05/15/25 20:19 Review of Systems Review of Systems: Yes all other systems are reviewed and are negative PMFSH Past Medical History Medical History (Updated 05/16/25 @ 03:45 by Estiven Irby PA-C) Anemia Sepsis Overactive bladder Non-Hodgkin lymphoma Afib IBS (irritable bowel syndrome) Elevated LFTs Non-insulin dependent diabetes mellitus HTN (hypertension) Surgical History Hx of breast surgery History of knee surgery Hx of colonoscopy Status post bilateral knee replacements Hx of cholecystectomy S/P complete hysterectomy Social History Social History Alcohol intake: never Patient Tobacco Use Status: Never used Tobacco Smoked in Last 30 Days: No Use of substances other than those prescribed or required for medical reasons: No Advance Directives: No Advance Directives Information Provided: Yes Do you have a plan to hurt others: No Plan Physical Exam Vital Signs: Vital Signs: Last Vital Signs Temp 97.8 F 05/15/25 22:32 Pulse 69 05/16/25 02:34 Resp 16 05/15/25 22:32 BP 174/59 H 05/16/25 02:34 Pulse Ox 98 05/15/25 22:32 O2 Del Method Room Air 05/15/25 22:32 BMI result Body Mass Index 26.9 CONSTITUTIONAL: The patient appears anxious, but otherwise non-toxic, well nourished and in no acute distress. Vital signs as documented. HEAD: Atraumatic, normocephalic. EYES: EOMs intact, no nystagmus, pupils equal, conjunctiva clear, no exudate. ENT: Nares patent, no discharge. Airway patent, no audible stridor, visible mucosa is dry but otherwise pink without noted lesions. NECK: Trachea is midline, no obvious masses or gross abnormalities. CHEST: Symmetric movement, normal appearance. LUNGS: LS present and CTAB, no w/r/r. Non-labored work of breathing. CARDIAC: Regular Rhythm, S1/S2 appreciated, no murmurs, rubs or gallops. ABDOMEN: Abdomen soft and non-tender x4 quadrants, no palpable masses or organomegaly. : Deferred. EXTREMITIES: Normal tone, moves all extremities spontaneously without reported pain. No obvious acute injury or deformity noted. NEURO: Alert and oriented x3, CN II-XII intact. Cerebellar Functioning intact. No sensory or motor deficits. Speech clear and appropriate. HINTS exam not concerning for central pathology, negative Azra-Hallpike. PSYCH: normal affect, appropriate eye contact, fluid speech, with appropriate response to questioning. No reported suicidality or homicidality. SKIN: Warm, dry, color appropriate, normal turgor. No rashes noted. Medications Administered Discontinued Medications Generic Name Dose Route Start Last Admin Trade Name Freq PRN Reason Stop Dose Admin Sodium Chloride 1,000 mls @ 999 mls/hr 05/16/25 01:15 05/16/25 02:33 Ns IV 05/16/25 02:15 Infused .Q1H1M MARY Infusion Meclizine HCl 25 mg 05/16/25 01:15 05/16/25 01:27 Meclizine Hcl 25 Mg Tablet PO 05/16/25 01:16 25 mg ONCE ONE Administration Medical Decision Making Medical Decision Making MDM Narrative: 3:34 AM 05/16/2025 (Amanda SEPULVEDA): The patient is a 79-year-old female presenting to the ED for evaluation of acute worsening of dizziness with associated diaphoresis and blurred vision which began while at work today. The patient has a history of baseline lightheadedness. The patient's exam reveals dry mucous membranes but otherwise no focal neurological deficit, no other acute findings. The patient does advised she feels she may have not kept up with fluid hydration in today's heat and humidity. Patient's laboratory evaluation shows no leukocytosis, no significant anemia, no electrolyte abnormality or APURVA. Patient's blood sugar is within normal limits x3, LFTs are unremarkable. Patient's troponin is negative, EKG is nonischemic. The patient's CT head shows a chronic left basal ganglia lacunar infarct, no acute intracranial pathology. The exact cause of the patient's increased dizziness is not entirely clear, patient was treated with meclizine and IV fluid hydration. Despite these interventions, when attempting to ambulate the patient had a unsteady gait, feeling imbalanced, having to hold onto [place]. The patient is unable to undergo CTA head and neck due to a contrast allergy. Due to the patient's persistent dizziness, we will admit for intractable dizziness, with plan for Neurology consultation and MRI tomorrow. Admission/Observation Consideration of admission/observation: Escalation of care including admission/observation considered Consult Healthcare Provider Management of the patient was discussed with: Hospitalist Lab Data [facility] Lab Attestation statement: I reviewed the patient's lab results. 05/15/25 20:32 05/15/25 20:32 Labs: Lab Results 05/15/25 05/15/25 05/16/25 Range/Units 20:22 20:32 01:00 WBC 7.3 (4.8-10.8) X10*3/uL RBC 3.65 L (4.20-5.50) X10*6/uL Hgb 11.0 L (12.0-16.0) g/dl Hct 31.1 L (37.0-47.0) % MCV 85.2 (80.0-98.0) fL MCH 30.1 (27.0-33.0) pg MCHC 35.4 H (31.0-35.0) g/dl RDW 13.5 (11.0-16.0) % Plt Count 163 (160-400) X10*3/uL MPV 10.2 (9.4-12.3) fL Immature Gran % (Auto) 0.6 H (0.0-0.4) % Neut % (Auto) 76.8 H (45-73) % Lymph % (Auto) 13.9 L (20-40) % [place] % (Auto) 6.5 (2-11) % Eos % (Auto) 1.8 (0-4) % Baso % (Auto) 0.4 (0-2) % Lymph # (Auto) 1.0 L (1.2-4.9) X10*3/uL [place] # (Auto) 0.5 (0.1-1.2) X10*3/uL Eos # (Auto) 0.1 (0.0-0.4) X10*3/uL Baso # (Auto) 0.0 (0.0-0.2) X10*3/uL Abs Immat Gran (auto) 0.04 H (0.00-0.03) X10*3/uL Absolute Neuts (auto) 5.6 (2.0-8.3) x10*3/uL Absolute Nucleated RBC 0.000 (0.0-0.012) X10*3/uL Nucleated RBC % (auto) 0.0 (0.0-0.2) /100WBC Sodium 139 (135-145) mmol/L Potassium 4.5 (3.3-5.1) mmol/L Chloride 102 (96-108) mmol/L Carbon Dioxide 24 (22-29) mmol/L Anion Gap 18 (12-20) BUN 36 H (9-16) mg/dL Creatinine 1.13 (0.5-1.4) mg/dL Estim Creat Clear Calc 49.4 Estimated GFR 47 POC Glucose 196 H 183 H (60-115) mg/dL Random Glucose 202 H (60-115) mg/dL Calcium 9.6 (8.4-10.2) mg/dL Total Bilirubin 0.3 (0.0-1.0) mg/dL AST 23 (5-31) U/L ALT 20 (0-31) U/L Alkaline Phosphatase 65 (39-117) U/L Troponin I High Sens 4.2 (<3.5-17.0) ng/L Total Protein 7.1 (6.5-8.0) g/dL Albumin 4.6 (3.5-5.0) g/dL Independent Interpretation I performed an independent interpretation of an: EKG (EKG shows sinus rhythm with first-degree AV block with a rate of 67, no evidence of acute ischemia, no ST elevation, no ectopy. QTC 448.) Discharge Plan Discharge Clinical Impression: Dizziness of unknown etiology Patient Disposition: Admitted As Inpatient Print Language: Maori
[2025-05-16 01:03] LABS: Glucose, Whole Blood 183 mg/dL (60-115)
--- NOTE | 2025-05-16 01:15 | PC.NURSE ---
DERICK Jean-Baptiste at bedside
--- NOTE | 2025-05-16 02:42 | PC.NURSE ---
pt denies symptoms when briskly standing up from wheelchair during stand-pivot to toilet. DERICK Jean-Baptiste made aware
--- NOTE | 2025-05-16 04:41 | P.HPHOSP_ITS ---
History of Present Illness Date of Service: 05/16/25 Attending physician on admission: Kuldeep Salmeron Chief Complaint: dizziness, weakness Patient is a 79-year-old female with a past medical history significant for type 2 diabetes, non-Hodgkin's lymphoma (no treatment, monitoring), hypertension, paroxysmal AFib on Eliquis and meningioma followed at [facility] with yearly MRIs (MRI 08/26 with stable [id number] left frontal opercular meningioma), who presented to the ED due to lightheadedness and and feeling unsteady on her feet described as dizziness and weakness. The patient reports that she has chronic lightheadedness due to hypoglycemia however she has checked her blood sugars which have been normal. She reports that she took her normal activities today including exercise but was unable to tolerate and felt significantly worse at work and unsafe to drive. At 1 point she was feeling diaphoretic with blurred vision which has improved. She reports poor balance and feeling faint. She denies spinning, syncopal episodes or tunnel vision. No recent illness, did have bronchitis in January and March. She denies fever but does have chills and nausea occasionally. No headache. She does report bilateral sinus pressure for the past few weeks, right greater than left with clear nasal discharge. No sore throat, cough or fever. In the ED the patient had a negative head CT and was given IV fluids and meclizine. Labs unremarkable. She has not had improvement with the treatment given in the ED and unable to have IV contrast for CTA. Plan for patient to be admitted under observation for an MRI, carotid US and neurology consult. Review of Systems 2 Constitutional: Constitutional: Denies body ache(s), Reports chills, Denies fatigue, Denies fever(s) and Denies headache(s) Eyes: Eyes: Reports blurry vision and Reports diplopia ENT: Denies headache(s), Denies nasal congestion, Reports nasal discharge, Reports sinus pressure and Denies sore throat Cardiovascular: Cardiovascular: Denies chest pain, Denies syncope, Denies rapid heart rate, Denies leg edema and Denies dyspnea Respiratory: Respiratory: Denies chest congestion, Denies cough, Denies dyspnea and Denies wheezing Gastrointestinal: Gastrointestinal: Denies abdominal pain, Reports nausea and Denies vomiting Genitourinary: Genitourinary: Denies difficulty voiding, Denies dysuria and Denies urinary urgency Musculoskeletal: Musculoskeletal: Denies muscle cramps and Denies muscle weakness Integumentary/Breasts: Skin/Breast: Denies rash Neurologic: Denies confusion, Denies syncope and Denies headache(s) Psychiatric: Psychiatric: Denies confusion Endocrine: Endocrine: Denies fatigue Hematologic/Lymphatic: Hematologic/Lymphatic: Denies easy bleeding and Denies easy bruising Allergic/Immunologic: Allergic/Immunologic: Denies wheezing PMFSH Medical History Anemia Sepsis Overactive bladder Non-Hodgkin lymphoma Afib IBS (irritable bowel syndrome) Elevated LFTs Non-insulin dependent diabetes mellitus HTN (hypertension) Functional capacity: independent ambulation Surgical History Hx of breast surgery History of knee surgery Hx of colonoscopy Status post bilateral knee replacements Hx of cholecystectomy S/P complete hysterectomy Social History Alcohol intake: never Patient Tobacco Use Status: Never used Tobacco Smoked in Last 30 Days: No Use of substances other than those prescribed or required for medical reasons: No Advance Directives: No Advance Directives Information Provided: Yes Do you have a plan to hurt others: No Plan Narrative: No smoking, alcohol or drug use Meds Allergies Allergy/AdvReac Type Severity Reaction Status Date / Time ciprofloxacin (Cipro) Allergy Unknown Hives Verified 05/15/25 20:19 Iodinated Contrast Media (IV Allergy Unknown ANAPHYLAXIS Verified 05/15/25 20:19 CONTRAST) levofloxacin (From LEVAQUIN) Allergy Unknown HIVES Verified 05/15/25 20:19 Sulfa (Sulfonamide Allergy Unknown HIVES Verified 05/15/25 20:19 Antibiotics) sulfamethoxazole (From Allergy Unknown HIVES Verified 05/15/25 20:19 BACTRIM) trimethoprim (From BACTRIM) Allergy Unknown HIVES Verified 05/15/25 20:19 ct dye Allergy Unknown Anaphylaxis Uncoded 05/15/25 20:19 iv dye Allergy Unknown Anaphylaxis Uncoded 05/15/25 20:19 Active Medications: Current Medications Acetaminophen (Acetaminophen 325 Mg Tablet) 975 mg PO Q6H PRN PRN Reason: Pain, Mild 1-3,fever,headache Calcium Carbonate (Calcium Carbonate 750 Mg Tab.Chew) 750 mg PO Q4H PRN PRN Reason: Heartburn Lactated Ringer's (Lr) 1,000 mls @ 75 mls/hr IVCONT .[id number] [facility] Magnesium Hydroxide (Milk Of Magnesia 30 Ml Oral.Susp) 30 ml PO DAILY PRN PRN Reason: Constipation Melatonin (Melatonin 3 Mg Tablet) 6 mg PO BEDTIME PRN PRN Reason: Insomnia Ondansetron HCl (Ondansetron Hcl 4 Mg/2 Ml Vial) 4 mg IVPUSH Q8H PRN PRN Reason: Nausea and Vomiting Sodium Chloride (0.9 % Sodium Chloride Flush 3 Ml Syringe) 3 ml IVFLUSH QSHIFT [facility] Home Medications ?Medication ?Instructions ?Recorded ?Confirmed ?Last Taken ?Type apixaban 5 mg tablet (Eliquis) 1 tab PO BID 08/25/22 1 10/25/21 08/27/22 History flecainide 50 mg tablet 1 tab PO BID 08/25/2208/30/22 08:00 History hydrochlorothiazide 12.5 mg tablet 1 tab PO DAILY 08/0408/25/22 Unknown History lisinopril 20 mg tablet 1 tab PO BID 08/25/2208/30/22 08:00 History metoprolol tartrate 25 mg tablet 0.5 tab PO 08/25/22 08/30/22 08:00 History Physical Exam 2 Vital Signs and Narrative: Vital Signs: Last Vital Signs Temp 97.8 F 05/15/25 22:32 Pulse 69 05/16/25 02:34 Resp 16 05/15/25 22:32 BP 174/59 H 05/16/25 02:34 Pulse Ox 98 05/15/25 22:32 O2 Del Method Room Air 05/15/25 22:32 BMI result Body Mass Index 26.9 General: AOx3, no acute distress Resp: CTA bilaterally CVS: S1, S2, RRR GI: +BS, NT, no distention Skin: Warm, dry Neuro: Cranial nerves II-XII grossly intact bilaterally. Motor grossly intact bilaterally. no focal neuro deficits. strength and sensation equal bilateral upper and lower extremities. Extremities: No pitting edema Psych: Appropriate affect Const: General: No confusion Orientation/consciousness: No confusion Neuro: General: No confusion Results Labs 05/15/25 20:32 05/15/25 20:32 Labs: Laboratory Results - last 24 hr 05/15/25 05/15/25 05/16/25 20:22 20:32 01:00 MCV 85.2 MCH 30.1 MCHC 35.4 H RDW 13.5 Plt Count 163 MPV 10.2 Immature Gran % (Auto) 0.6 H Neut % (Auto) 76.8 H Lymph % (Auto) 13.9 L [place] % (Auto) 6.5 Eos % (Auto) 1.8 Baso % (Auto) 0.4 Lymph # (Auto) 1.0 L [place] # (Auto) 0.5 Eos # (Auto) 0.1 Baso # (Auto) 0.0 Abs Immat Gran (auto) 0.04 H Absolute Neuts (auto) 5.6 Absolute Nucleated RBC 0.000 Nucleated RBC % (auto) 0.0 Anion Gap 18 Estim Creat Clear Calc 49.4 Estimated GFR 47 POC Glucose 196 H 183 H Random Glucose 202 H Calcium 9.6 Total Bilirubin 0.3 AST 23 ALT 20 Alkaline Phosphatase 65 Total Protein 7.1 Albumin 4.6 Assessment and Plan (1) Dizziness of unknown etiology: Status: Acute Plan Patient is a 79-year-old female with a past medical history significant for type 2 diabetes, non-Hodgkin's lymphoma (no treatment, monitoring), hypertension, paroxysmal AFib on Eliquis and meningioma followed at [facility] with yearly MRIs (MRI 08/26 with stable [id number] left frontal opercular meningioma), who presented to the ED due to lightheadedness and and feeling unsteady on her feet described as dizziness and weakness. In the ED the patient had a negative head CT and was given IV fluids and meclizine. Labs unremarkable. She has not had improvement with the treatment given in the ED and unable to have IV contrast for CTA. Plan for patient to be admitted under observation for an MRI, carotid US and neurology consult. intractable dizziness of unknown etiology - head CT negative - vitals stable, no leukocytosis, no sign of infection - EKG with sinus rhythm 1st degree AV block - trop negative - UA not yet done - no improvement with 1L LR and meclizine - check respiratory panel, COVID/flu/RSV - check TSH - MRI brain - bilateral carotid US - monitor on tele - LR 75ml/hr - neuro consult - monitor CBC and BMP T2DM - hold metformin - sliding scale insulin - diabetic diet non-Hodgkin's lymphoma - followed yearly by oncology, monitoring labs, have been stable, has never had treatment HTN - continue home meds paroxysmal a fib - EKG without a fib - continue home meds - on tele med rec pending full code VTE prophy: [email or web address] Pt with intractable dizziness with unknown etiology requiring admission for observation for further evaluation and neurology consult. Quality Stroke Does the patient have a stroke diagnosis?: No VTE Prior VTE?: No VTE Risk Level:: Medical - moderate - high VTE Device Contraindication: Treatment Not Indicated VTE Drug Contraindication: N/A - Med Ordered
[2025-05-16 04:59] LABS: Magnesium 1.9 mg/dL (1.6-2.6)
[2025-05-16] MEDS: Lactated Ringers 1,000 ML 75 ML IVCONT (05:14)
[2025-05-16 05:29] LABS: Hematocrit 28.2 % (37.0-47.0); Hemoglobin 9.9 g/dl (12.0-16.0); Mean Corpuscular HGB Conc 35.1 g/dl (31.0-35.0); Mean Corpuscular Hemoglobin 30.0 pg (27.0-33.0); Mean Corpuscular Volume 85.5 fL (80.0-98.0); NRBC Abs Auto 0.000 X10*3/uL (0.0-0.012); NRBC Pct Auto 0.0 /100WBC (0.0-0.2); Platelet Count 150 X10*3/uL (160-400); Red Blood Count 3.30 X10*6/uL (4.20-5.50); White Blood Count 5.9 X10*3/uL (4.8-10.8)
[2025-05-16 05:49] LABS: Anion Gap 15 (12-20); Blood Urea Nitrogen 32 mg/dL (9-16); Calcium 9.0 mg/dL (8.4-10.2); Carbon Dioxide 21 mmol/L (22-29); Chloride 107 mmol/L (96-108); Creatinine Clr Calc Pharmacy 58.1; Estimated Glomerular Filt Rate 56; Potassium 3.9 mmol/L (3.3-5.1); Sodium 139 mmol/L (135-145)
[2025-05-16 05:52] LABS: Resp Syncy Virus RNA Qual PCR NEGATIVE (Negative); SARS COV2 PCR INHOUSE NEGATIVE (Negative)
[2025-05-16 07:09] LABS: Glucose, Whole Blood 155 mg/dL (60-115)
--- NOTE | 2025-05-16 07:45 | PHA.MEDREC ---
Pharmacy Consult ? Medication Reconciliation Pharmacy has completed the medication reconciliation. Spoke with patient at bedside, she know her home meds and matched pharmacy claims.
[2025-05-16 07:58] LABS: Appearance Urine Clear; Glucose Urine UA Negative (Negative); PH 6.5 (5.0-9.0); Specific Gravity - Urine <= 1.005 (1.005-1.025); UMIC TRIGGER UACC YES
[2025-05-16 08:03] LABS: UACC Culture Trigger YES
[2025-05-16 08:58] LABS: Chlamydia pneumoniae PCR Not Detected (Not Detect.); Coronavirus 229E PCR Not Detected (Not Detect.); Coronavirus HKU1 PCR Not Detected (Not Detect.); Coronavirus NL63 PCR Not Detected (Not Detect.); Coronavirus OC43 PCR Not Detected (Not Detect.); RSV PCR Not Detected (Not Detect.); Rhino/Enterovirus PCR Not Detected (Not Detect.)
[2025-05-16] MEDS: Metoprolol Tartrate 12.5 MG HALFTAB PO ×2 (09:22→21:23)
--- NOTE | 2025-05-16 09:29 | PC.NURSE ---
MRI screening sheet faxed. US at bedside at this time.
[2025-05-16 09:47] LABS: Influenza A H1 PCR Not Detected (Not Detect.); Influenza A H1-2009 PCR Not Detected (Not Detect.); Influenza A H3 PCR Not Detected (Not Detect.); SARS-CoV-2 PCR Not Detected (Not Detect.)
--- NOTE | 2025-05-16 10:31 | P.CNNE_ITS ---
History of Present Illness Data of Consult Service Date: 05/16/25 Primary Care Provider: Fili Choi MD [facility] Reason for consult: Dizzy 79-year-old female with a past medical history significant for type 2 diabetes, non-Hodgkin's lymphoma (no treatment, monitoring), hypertension, paroxysmal AFib on Eliquis and meningioma followed at [facility] with yearly MRIs (MRI 08/26 with stable [id number] left frontal opercular meningioma), who presented to the ED due to lightheadedness and and feeling unsteady on her feet described as dizziness and weakness. Her brother couple of weeks ago and she was also having a viral syndrome with stuffiness in her head more so on the right side. Dizziness was lightheadedness type but also with nausea. There was no specific ear symptom or significant headache. Review of Systems 2 Review of Systems: Recent stress related to her brother's and a viral syndrome resulting in stuffiness in the head no cardiac symptom PMFSH Past Medical History Medical History Anemia Sepsis Overactive bladder Non-Hodgkin lymphoma Afib IBS (irritable bowel syndrome) Elevated LFTs Non-insulin dependent diabetes mellitus HTN (hypertension) Surgical History Surgical History Hx of breast surgery History of knee surgery Hx of colonoscopy Status post bilateral knee replacements Hx of cholecystectomy S/P complete hysterectomy Social History Social History Alcohol intake: never Patient Tobacco Use Status: Never used Tobacco Smoked in Last 30 Days: No Use of substances other than those prescribed or required for medical reasons: No Advance Directives: No Advance Directives Information Provided: Yes Do you have a plan to hurt others: No Plan Meds Allergies Allergy/AdvReac Type Severity Reaction Status Date / Time ciprofloxacin (Cipro) Allergy Unknown Hives Verified 05/15/25 20:19 Iodinated Contrast Media (IV Allergy Unknown ANAPHYLAXIS Verified 05/15/25 20:19 CONTRAST) levofloxacin (From LEVAQUIN) Allergy Unknown HIVES Verified 05/15/25 20:19 Sulfa (Sulfonamide Allergy Unknown HIVES Verified 05/15/25 20:19 Antibiotics) sulfamethoxazole (From Allergy Unknown HIVES Verified 05/15/25 20:19 BACTRIM) trimethoprim (From BACTRIM) Allergy Unknown HIVES Verified 05/15/25 20:19 ct dye Allergy Unknown Anaphylaxis Uncoded 05/15/25 20:19 iv dye Allergy Unknown Anaphylaxis Uncoded 05/15/25 20:19 Active Medications: Current Medications Acetaminophen (Acetaminophen 325 Mg Tablet) 975 mg PO Q6H PRN PRN Reason: Pain, Mild 1-3,fever,headache Apixaban (Apixaban 5 Mg Tablet) 5 mg PO BID [facility] Last Admin: 05/16/25 07:59 Dose: 5 mg Atorvastatin Calcium (Atorvastatin Calcium 20 Mg Tablet) 20 mg PO DAILY [facility] Last Admin: 05/16/25 09:19 Dose: Not Given Calcium Carbonate (Calcium Carbonate 750 Mg Tab.Chew) 750 mg PO Q4H PRN PRN Reason: Heartburn Ceftriaxone Sodium (Ceftriaxone Sodium 1 Gm Vial) 1 gm IVPUSH Q24H [facility] Last Admin: 05/16/25 09:18 Dose: 1 gm Dextrose (Dextrose 50 % 25 Gm/50 Ml Syringe) 25 gm IVPUSH Q15M PRN; Protocol PRN Reason: per Hypoglycemia Standing Ord. Flecainide Acetate (Flecainide Acetate 50 Mg Tablet) 50 mg PO BID [facility] Last Admin: 05/16/25 09:22 Dose: 50 mg Glucose (Glucose Gel 15 Gm Gel..Gram.) 15 gm PO Q15M PRN; Protocol PRN Reason: per Hypoglycemia Standing Ord. Lactated Ringer's (Lr) 1,000 mls @ 75 mls/hr IVCONT .[id number] [facility] Last Admin: 05/16/25 05:14 Dose: 75 mls/hr Insulin Human Lispro (Insulin Lispro 100 Unit/Ml 3 Ml Vial) 0 unit SUBCUT QIDACHS [facility]; Protocol Last Admin: 05/16/25 07:59 Dose: 2 unit Lisinopril (Lisinopril 20 Mg Tablet) 20 mg PO BID [facility]; Protocol Last Admin: 05/16/25 09:18 Dose: 20 mg Magnesium Hydroxide (Milk Of Magnesia 30 Ml Oral.Susp) 30 ml PO DAILY PRN PRN Reason: Constipation Melatonin (Melatonin 3 Mg Tablet) 6 mg PO BEDTIME PRN PRN Reason: Insomnia Metoprolol Tartrate (Metoprolol Tartrate 12.5 Mg Halftab) 12.5 mg PO BID [facility]; Protocol Last Admin: 05/16/25 09:22 Dose: 12.5 mg Ondansetron HCl (Ondansetron Hcl 4 Mg/2 Ml Vial) 4 mg IVPUSH Q8H PRN PRN Reason: Nausea and Vomiting Sodium Chloride (0.9 % Sodium Chloride Flush 3 Ml Syringe) 3 ml IVFLUSH QSHIFT [facility] Last Admin: 05/16/25 07:09 Dose: Not Given Home Medications ?Medication ?Instructions ?Recorded ?Confirmed ?Last Taken ?Type apixaban 5 mg tablet (Eliquis) 1 tab PO BID 08/25/22 0 05/16/25 05/15/25 11:00 History flecainide 50 mg tablet 1 tab PO BID 08/25/2205/15/25 11:00 History hydrochlorothiazide 12.5 mg tablet 1 tab PO DAILY 08/0405/16/25 05/15/25 11:00 History lisinopril 20 mg tablet 1 tab PO BID 08/25/2205/15/25 11:00 History metoprolol tartrate 25 mg tablet 0.5 tab PO BID 05/16/25 05/15/25 11:00 History atorvastatin 20 mg tablet 20 mg PO DAILY 05/16/2505/0305/15/25 11:00 History Physical Exam 2 Vital Signs: Vital Signs: Last Vital Signs Temp 97.8 F 05/16/25 06:16 Pulse 72 05/16/25 09:18 Resp 12 05/16/25 09:18 BP 180/62 H 05/16/25 09:18 Pulse Ox 99 05/16/25 09:18 O2 Del Method Room Air 05/16/25 09:18 BMI result Body Mass Index 26.9 Neuro: Other: She is alert and awake with normal spontaneity of speech fluency comprehension and depressed anterior full affect. Face is symmetrical. Visual varela are full. There was no pronator drift. Deep tendon reflexes are trace to absent with right extensor and left flexor plantars. Speech is normal. Results Labs 05/16/25 04:52 05/16/25 04:52 Labs: Short CBC 05/15/25 05/16/25 Range/Units 20:32 04:52 WBC 7.3 5.9 (4.8-10.8) X10*3/uL Hgb 11.0 L 9.9 L (12.0-16.0) g/dl Hct 31.1 L 28.2 L (37.0-47.0) % Plt Count 163 150 L (160-400) X10*3/uL BMP 05/15/25 05/16/25 20:32 04:52 Sodium 139 139 Potassium 4.5 3.9 Chloride 102 107 Carbon Dioxide 24 21 L BUN 36 H 32 H Creatinine 1.13 0.96 Calcium 9.6 9.0 D Liver Function 05/15/25 Range/Units 20:32 Total Bilirubin 0.3 (0.0-1.0) mg/dL AST 23 (5-31) U/L ALT 20 (0-31) U/L Alkaline Phosphatase 65 (39-117) U/L Albumin 4.6 (3.5-5.0) g/dL Urine 05/16/25 Range/Units 07:50 Urine Color Yellow Urine Appearance Clear Urine pH 6.5 (5.0-9.0) Ur Specific [place] <= 1.005 (1.005-1.025) Urine Protein Negative (Neg-Trace) mg/dL Urine Glucose (UA) Negative (Negative) mg/dL Head CT revealed a left frontal mixed density perioral opercular lesion, extra- axial. Assessment and Plan (1) Dizziness of unknown etiology: Status: Acute Probably multifactorial dizziness related to recent of her brother resulting in stress and depression and a viral syndrome resulting in stuffiness and had that might have affected her vestibular system. She was still significantly depressed and has overt symptom of upper respiratory tract viral type of syndrome. On examination she has right extensor plantars and a left frontal extra-axial lesion probably a meningioma. Has exact reason of right extensor plantars is unclear with no obvious other brain lesion noted, my recommendation is to obtain a noncontrast MRI to rule out any acute stroke and also to see if meningioma is impacting the frontal lobe. (2) Meningioma: Status: Acute (3) Abnormal neurological exam: Status: Acute Procedures Date of Service Date of Service: 05/16/25
--- NOTE | 2025-05-16 11:04 | HO.PM.IMPN ---
Subjective Subjective Date of Service: 05/16/25 Interval History: still dizzy Physical Exam Vital Signs: Vital Signs: Last Vital Signs Temp 97.8 F 05/16/25 06:16 Pulse 72 05/16/25 09:18 Resp 12 05/16/25 09:18 BP 180/62 H 05/16/25 09:18 Pulse Ox 99 05/16/25 09:18 O2 Del Method Room Air 05/16/25 09:18 BMI result Body Mass Index 26.9 Neuro: Other: She is alert and awake with normal spontaneity of speech fluency comprehension and depressed anterior full affect. Face is symmetrical. Visual varela are full. There was no pronator drift. Deep tendon reflexes are trace to absent with right extensor and left flexor plantars. Speech is normal. Objective Data Active Medications Acetaminophen (Acetaminophen 325 Mg Tablet) 975 mg PO Q6H PRN PRN Reason: Pain, Mild 1-3,fever,headache Apixaban (Apixaban 5 Mg Tablet) 5 mg PO BID [facility] Last Admin: 05/16/25 07:59 Dose: 5 mg Documented By: CEDRICK Atorvastatin Calcium (Atorvastatin Calcium 20 Mg Tablet) 20 mg PO DAILY [facility] Last Admin: 05/16/25 09:19 Dose: Not Given Documented By: CEDRICK Non-Admin Reason: Patient Refused Comments: pt reports she does not take this Calcium Carbonate (Calcium Carbonate 750 Mg Tab.Chew) 750 mg PO Q4H PRN PRN Reason: Heartburn Ceftriaxone Sodium (Ceftriaxone Sodium 1 Gm Vial) 1 gm IVPUSH Q24H [facility] Last Admin: 05/16/25 09:18 Dose: 1 gm Documented By: CEDRICK Dextrose (Dextrose 50 % 25 Gm/50 Ml Syringe) 25 gm IVPUSH Q15M PRN; Protocol PRN Reason: per Hypoglycemia Standing Ord. Flecainide Acetate (Flecainide Acetate 50 Mg Tablet) 50 mg PO BID [facility] Last Admin: 05/16/25 09:22 Dose: 50 mg Documented By: CEDRICK Glucose (Glucose Gel 15 Gm Gel..Gram.) 15 gm PO Q15M PRN; Protocol PRN Reason: per Hypoglycemia Standing Ord. Lactated Ringer's (Lr) 1,000 mls @ 75 mls/hr IVCONT .[id number] [facility] Last Admin: 05/16/25 05:14 Dose: 75 mls/hr Documented By: ROBER Insulin Human Lispro (Insulin Lispro 100 Unit/Ml 3 Ml Vial) 0 unit SUBCUT QIDACHS [facility]; Protocol Last Admin: 05/16/25 07:59 Dose: 2 unit Documented By: CEDRICK Lisinopril (Lisinopril 20 Mg Tablet) 20 mg PO BID [facility]; Protocol Last Admin: 05/16/25 09:18 Dose: 20 mg Documented By: CEDRICK Magnesium Hydroxide (Milk Of Magnesia 30 Ml Oral.Susp) 30 ml PO DAILY PRN PRN Reason: Constipation Melatonin (Melatonin 3 Mg Tablet) 6 mg PO BEDTIME PRN PRN Reason: Insomnia Metoprolol Tartrate (Metoprolol Tartrate 12.5 Mg Halftab) 12.5 mg PO BID [facility]; Protocol Last Admin: 05/16/25 09:22 Dose: 12.5 mg Documented By: CEDRICK Ondansetron HCl (Ondansetron Hcl 4 Mg/2 Ml Vial) 4 mg IVPUSH Q8H PRN PRN Reason: Nausea and Vomiting Sodium Chloride (0.9 % Sodium Chloride Flush 3 Ml Syringe) 3 ml IVFLUSH QSHIFT [facility] Last Admin: 05/16/25 07:09 Dose: Not Given Documented By: CEDRICK Non-Admin Reason: IV Running Labs 05/16/25 04:52 05/16/25 04:52 Labs: Laboratory Results - last 24 hr 05/15/25 05/15/25 05/16/25 20:22 20:32 01:00 MCV 85.2 MCH 30.1 MCHC 35.4 H RDW 13.5 Plt Count 163 MPV 10.2 Immature Gran % (Auto) 0.6 H Neut % (Auto) 76.8 H Lymph % (Auto) 13.9 L [place] % (Auto) 6.5 Eos % (Auto) 1.8 Baso % (Auto) 0.4 Lymph # (Auto) 1.0 L [place] # (Auto) 0.5 Eos # (Auto) 0.1 Baso # (Auto) 0.0 Abs Immat Gran (auto) 0.04 H Absolute Neuts (auto) 5.6 Absolute Nucleated RBC 0.000 Nucleated RBC % (auto) 0.0 Anion Gap 18 Estim Creat Clear Calc 49.4 Estimated GFR 47 POC Glucose 196 H 183 H Random Glucose 202 H Calcium 9.6 Magnesium 1.9 Total Bilirubin 0.3 AST 23 ALT 20 Alkaline Phosphatase 65 Total Protein 7.1 Albumin 4.6 TSH 2.57 Urine Color Urine Appearance Urine pH Ur Specific [place] Urine Protein Urine Glucose (UA) Urine Ketones Urine Blood Urine Nitrite Ur Leukocyte Esterase Urine RBC Urine WBC Ur Squamous Epith Cells Urine Bacteria Hyaline Casts Respiratory Panel [place] Adenovirus (Rapid PCR) B.pert (TEM-PCR) B.parapertussis DNA PCR C. pneumoniae DNA (PCR) Coronavirus OC43 (PCR) Coronavirus HKU1 (PCR) Coronavirus 229E (PCR) Coronavirus NL63 (PCR) Human Metapneumovir PCR Influenza A (RT-PCR) Influenza A (H1) PCR Influ A (H1/09) PCR Influenza A (H3) PCR Influenza Type A (PCR) Influenza B (RT-PCR) Influenza Type B (PCR) M. pneumoniae (PCR) Parainfluenza 1 (PCR) Parainfluenza 2 (PCR) Parainfluenza 3 (PCR) Parainfluenza 4 (PCR) RSV (PCR) RSV RNA Qual (PCR) Entero/Rhino (PCR) SARS-CoV-2 RNA (RT-PCR) 05/16/25 05/16/25 05/16/25 04:52 05:12 07:06 MCV 85.5 MCH 30.0 MCHC 35.1 H RDW 13.5 Plt Count 150 L MPV 10.9 Immature Gran % (Auto) Neut % (Auto) Lymph % (Auto) [place] % (Auto) Eos % (Auto) Baso % (Auto) Lymph # (Auto) [place] # (Auto) Eos # (Auto) Baso # (Auto) Abs Immat Gran (auto) Absolute Neuts (auto) Absolute Nucleated RBC 0.000 Nucleated RBC % (auto) 0.0 Anion Gap 15 Estim Creat Clear Calc 58.1 Estimated GFR 56 POC Glucose 155 H Random Glucose 170 H Calcium 9.0 D Magnesium Total Bilirubin AST ALT Alkaline Phosphatase Total Protein Albumin TSH Urine Color Urine Appearance Urine pH Ur Specific [place] Urine Protein Urine Glucose (UA) Urine Ketones Urine Blood Urine Nitrite Ur Leukocyte Esterase Urine RBC Urine WBC Ur Squamous Epith Cells Urine Bacteria Hyaline Casts Respiratory Panel [place] Adenovirus (Rapid PCR) B.pert (TEM-PCR) B.parapertussis DNA PCR C. pneumoniae DNA (PCR) Coronavirus OC43 (PCR) Coronavirus HKU1 (PCR) Coronavirus 229E (PCR) Coronavirus NL63 (PCR) Human Metapneumovir PCR Influenza A (RT-PCR) Influenza A (H1) PCR Influ A () PCR Influenza A (H3) PCR Influenza Type A (PCR) NEGATIVE Influenza B (RT-PCR) Influenza Type B (PCR) NEGATIVE M. pneumoniae (PCR) Parainfluenza 1 (PCR) Parainfluenza 2 (PCR) Parainfluenza 3 (PCR) Parainfluenza 4 (PCR) RSV (PCR) RSV RNA Qual (PCR) NEGATIVE Entero/Rhino (PCR) SARS-CoV-2 RNA (RT-PCR) NEGATIVE 05/16/25 07:50 MCV MCH MCHC RDW Plt Count MPV Immature Gran % (Auto) Neut % (Auto) Lymph % (Auto) [place] % (Auto) Eos % (Auto) Baso % (Auto) Lymph # (Auto) [place] # (Auto) Eos # (Auto) Baso # (Auto) Abs Immat Gran (auto) Absolute Neuts (auto) Absolute Nucleated RBC Nucleated RBC % (auto) Anion Gap Estim Creat Clear Calc Estimated GFR POC Glucose Random Glucose Calcium Magnesium Total Bilirubin AST ALT Alkaline Phosphatase Total Protein Albumin TSH Urine Color Yellow Urine Appearance Clear Urine pH 6.5 Ur Specific [place] <= 1.005 Urine Protein Negative Urine Glucose (UA) Negative Urine Ketones Negative Urine Blood Negative Urine Nitrite Negative Ur Leukocyte Esterase Large (3+) H Urine RBC 0-2 Urine WBC 21-50 H Ur Squamous Epith Cells 0-2 Urine Bacteria 3+ Hyaline Casts 0-2 Respiratory Panel [place] See Note Adenovirus (Rapid PCR) Not Detected B.pert (TEM-PCR) Not Detected B.parapertussis DNA PCR Not Detected C. pneumoniae DNA (PCR) Not Detected Coronavirus OC43 (PCR) Not Detected Coronavirus HKU1 (PCR) Not Detected Coronavirus 229E (PCR) Not Detected Coronavirus NL63 (PCR) Not Detected Human Metapneumovir PCR Not Detected Influenza A (RT-PCR) Not Detected Influenza A (H1) PCR Not Detected Influ A () PCR Not Detected Influenza A (H3) PCR Not Detected Influenza Type A (PCR) Influenza B (RT-PCR) Not Detected Influenza Type B (PCR) M. pneumoniae (PCR) Not Detected Parainfluenza 1 (PCR) Not Detected Parainfluenza 2 (PCR) Not Detected Parainfluenza 3 (PCR) Not Detected Parainfluenza 4 (PCR) Not Detected RSV (PCR) Not Detected RSV RNA Qual (PCR) Entero/Rhino (PCR) Not Detected SARS-CoV-2 RNA (RT-PCR) Not Detected Assessment and Plan (1) Abnormal neurological exam: Status: Acute Plan 79F PMH diabetes, non-Hodgkin's lymphoma, hypertension, paroxysmal AFib on Eliquis, history of CVA, meningioma presented with dizziness and weakness Dizziness and weakness Rule out CVA Neuro appreciated, check MRI Diabetes Insulin sliding scale Non-Hodgkin's lymphoma Outpatient Oncology Hypotension Lisinopril Paroxysmal AFib Continue Eliquis, flecainide Metoprolol History of CVA Continue Eliquis DVT prophylaxis with Eliquis Full Code reason for continued hospitalization: MRI pending Quality Stroke Does the patient have a stroke diagnosis?: No VTE Prior VTE?: No VTE Risk Level:: Medical - moderate - high VTE Device Contraindication: Treatment Not Indicated VTE Drug Contraindication: N/A - Med Ordered
[2025-05-16 11:19] LABS: Glucose, Whole Blood 154 mg/dL (60-115)
--- NOTE | 2025-05-16 12:32 | MHC.CM.PN ---
CM met with Patient at bedside, in the ED, and addressed RUANO with her, providing Patient with the original and a copy will be placed on the chart. Patient lives alone in a condo and she required no services nor DME [employer]. Home/self care is the goal and CM has initiated and will follow for dc planning. PCP is Dr. Fili Choi.Friend/HCP/Zelda will transport to home at time of dc.
[2025-05-16 15:58] LABS: Glucose, Whole Blood 168 mg/dL (60-115)
[2025-05-16] MEDS: 0.9 % Sodium Chloride Flush 3 ML SYRINGE IVFLUSH ×2 (17:10→21:24)
[2025-05-16 21:06] LABS: Glucose, Whole Blood 153 mg/dL (60-115)
[2025-05-17 03:36] VITALS: BP 165/70; PULSE 64; RESP 16; TEMP 36.3; O2SAT 97
[2025-05-17 07:09] VITALS: BP 155/68; PULSE 60; RESP 18; TEMP 36.4; O2SAT 97
[2025-05-17 07:24] LABS: Glucose, Whole Blood 162 mg/dL (60-115)
[2025-05-17 07:25] LABS: Hematocrit 31.6 % (37.0-47.0); Hemoglobin 10.8 g/dl (12.0-16.0); Mean Corpuscular HGB Conc 34.2 g/dl (31.0-35.0); Mean Corpuscular Hemoglobin 29.9 pg (27.0-33.0); Mean Corpuscular Volume 87.5 fL (80.0-98.0); NRBC Abs Auto 0.000 X10*3/uL (0.0-0.012); NRBC Pct Auto 0.0 /100WBC (0.0-0.2); Platelet Count 151 X10*3/uL (160-400); Red Blood Count 3.61 X10*6/uL (4.20-5.50); White Blood Count 5.5 X10*3/uL (4.8-10.8)
[2025-05-17 07:42] LABS: Anion Gap 12 (12-20); Blood Urea Nitrogen 26 mg/dL (9-16); Calcium 9.5 mg/dL (8.4-10.2); Carbon Dioxide 25 mmol/L (22-29); Chloride 107 mmol/L (96-108); Creatinine Clr Calc Pharmacy 54.1; Estimated Glomerular Filt Rate 52; Potassium 4.1 mmol/L (3.3-5.1); Sodium 140 mmol/L (135-145)
[2025-05-17 07:43] VITALS: BP 147/67; PULSE 62
[2025-05-17 07:44] VITALS: BP 162/74; BP 172/77; PULSE 66
[2025-05-17] MEDS: 0.9 % Sodium Chloride Flush 3 ML SYRINGE IVFLUSH (08:15)
[2025-05-17] MEDS: Metoprolol Tartrate 12.5 MG HALFTAB PO (08:15)
--- NOTE | 2025-05-17 10:21 | P.DS_ITS ---
DS: Providers Provider Date of Service: 05/17/25 Date of admission: 05/16/25 03:50 Date of discharge: 05/17/25 Primary care physician: Fili Choi MD Consults: 05/16/25 04:37 Consult to Neurology Routine Consulting Provider: [facility] Reason for consultation: weakness, dizziness Has provider been notified: No DS: Diagnosis Discharge Diagnosis (1) Abnormal neurological exam: Status: Acute DS: Summary Hospital Course Hospital Course: from initial hpi: 79-year-old female with a past medical history significant for type 2 diabetes, non-Hodgkin's lymphoma (no treatment, monitoring), hypertension, paroxysmal AFib on Eliquis and meningioma followed at [facility] with yearly MRIs (MRI 08/26 with stable [id number] left frontal opercular meningioma), who presented to the ED due to lightheadedness and and feeling unsteady on her feet described as dizziness and weakness. The patient reports that she has chronic lightheadedness due to hypoglycemia however she has checked her blood sugars which have been normal. She reports that she took her normal activities today including exercise but was unable to tolerate and felt significantly worse at work and unsafe to drive. At 1 point she was feeling diaphoretic with blurred vision which has improved. She reports poor balance and feeling faint. She denies spinning, syncopal episodes or tunnel vision. No recent illness, did have bronchitis in January and March. She denies fever but does have chills and nausea occasionally. No headache. She does report bilateral sinus pressure for the past few weeks, right greater than left with clear nasal discharge. No sore throat, cough or fever. In the ED the patient had a negative head CT and was given IV fluids and meclizine. Labs unremarkable. She has not had improvement with the treatment given in the ED and unable to have IV contrast for CTA. Plan for patient to be admitted under observation for an MRI, carotid US and neurology consult. hospital course: Patient was admitted for dizziness and weakness. Was seen by neurology recommended MRI which was negative for acute stroke. Symptoms improved and patient will be discharged home. For diabetes continue insulin sliding scale. For non-Hodgkin's lymphoma we will follow up with Oncology as outpatient. For hypertension continued on lisinopril. For paroxysmal AFib continued on Eliquis, flecainide, metoprolol. For history of CVA continued on Eliquis. For urinary tract infection given ceftriaxone, culture still pending but will be discharged on 5 days of Ceftin. Antibiotics should be changed if resistant. Time Attestation Discharge Coordination Time (in mins): 34 Quality: Safe Use of Opioids Does Pt have an Active Cancer Diagnosis on the Problem List?: No Quality: Stroke Does the patient have a stroke diagnosis?: No Physical Exam Vital Signs: Vital Signs: Last Vital Signs Temp 97.6 F 05/17/25 07:09 Pulse 66 05/17/25 07:44 Resp 18 05/17/25 07:09 BP 172/77 H 05/17/25 07:44 Pulse Ox 97 05/17/25 07:09 O2 Del Method Room Air 05/17/25 07:09 BMI result Body Mass Index 26.9 Neuro: Other: She is alert and awake with normal spontaneity of speech fluency comprehension and depressed anterior full affect. Face is symmetrical. Visual varela are full. There was no pronator drift. Deep tendon reflexes are trace to absent with right extensor and left flexor plantars. Speech is normal. DS: Data Data Completed and Pending Labs on day of discharge: Laboratory Results - last 24 hr 05/16/25 05/16/25 05/16/25 11:14 15:54 21:02 WBC RBC Hgb Hct MCV MCH MCHC RDW Plt Count MPV Absolute Nucleated RBC Nucleated RBC % (auto) Sodium Potassium Chloride Carbon Dioxide Anion Gap BUN Creatinine Estim Creat Clear Calc Estimated GFR POC Glucose 154 H 168 H 153 H Random Glucose Calcium 05/17/25 05/17/25 05/17/25 06:51 06:52 07:14 WBC 5.5 RBC 3.61 L Hgb 10.8 L Hct 31.6 L MCV 87.5 MCH 29.9 MCHC 34.2 RDW 13.6 Plt Count 151 L MPV 10.6 Absolute Nucleated RBC 0.000 Nucleated RBC % (auto) 0.0 Sodium 140 Potassium 4.1 Chloride 107 Carbon Dioxide 25 Anion Gap 12 BUN 26 H Creatinine 1.03 Estim Creat Clear Calc 54.1 Estimated GFR 52 POC Glucose 162 H Random Glucose 164 H Calcium 9.5 Preliminary micro results at discharge 05/16/25 07:43 Urine Culture - Preliminary Urine clean catch - Clean Catch Midstream Culture in progress. Discharge Plan Discharge Anticipated Discharge Date/Time: 05/17/25 10:19 Patient Disposition: Home, Self-Care Discharge Diagnosis: dizzy Referrals: Fili Choi MD [Primary Care Provider, Medical] - 1 Week Discharge Medications: New cefuroxime axetil 500 mg tablet 500 mg PO BID Qty: 10 0RF Continued lisinopril 20 mg tablet 1 tab PO BID flecainide 50 mg tablet 1 tab PO BID metoprolol tartrate 25 mg tablet 0.5 tab PO BID hydrochlorothiazide 12.5 mg tablet 1 tab PO DAILY Eliquis 5 mg tablet 1 tab PO BID atorvastatin 20 mg tablet 20 mg PO DAILY Discharge Orders: Discharge Order (Routine); Ordered 05/17/25 Ordered By: Roge Frey Diet: Advance to usual diet Activity on Discharge: As tolerated Stand Alone Forms: Patient Portal Discharge page Print Language: Kazakh Care Plan Goals: recovery Health Concerns: dizziness Plan of Treatment: follow up with pcp, if diplopia continues follow up with opthamology, 5 days ceftin, follow up cultures if need to change antibiotics Assessment: see above
--- NOTE | 2025-05-17 10:57 | MHC.CM.PN ---
[place] 05/16/25 Patient is discharged to home, self care. She has arranged for transportation home.
[2025-05-17 11:22] VITALS: BP 131/67; PULSE 56; RESP 18; TEMP 36.3; O2SAT 98
[2025-05-17 11:34] LABS: Glucose, Whole Blood 204 mg/dL (60-115)
== END 2025-05-17 13:00 | disposition home or self-care (01) ==
LOC: HO.ED 05-16 03:45 → HO.EDOVER 05-16 03:54 → HO.IMC 05-16 14:51
PROVIDERS: Physician Assistant; Admitting Provider Internal Medicine; Emergency Provider Emergency Medicine; PCP Internal Medicine; Visit Provider Internal Medicine
DX: R42 Dizziness and giddiness (principal); R53.1 Weakness; E11.9 Type 2 diabetes mellitus without complications; I10 Essential (primary) hypertension; Z79.01 Long term (current) use of anticoagulants; C85.90 Non-Hodgkin lymphoma, unspecified, unspecified site; I48.0 Paroxysmal atrial fibrillation; I95.9 Hypotension, unspecified; R29.90 Unspecified symptoms and signs involving the nervous system; Z86.73 Personal history of transient ischemic attack (TIA), and cerebral infarction without residual deficits
CPT/HCPCS: 36415; 70450; 70551; 80048; 80053; 81001; 82947; 83735; 84443; 84484; 85025; 85027; 87086; 87633; 87637; 93005; 93880; 96361; 96374; 96376; 99222; 99285; J0696; J7120

== ENCOUNTER → 2025-05-15 20:22 | Outpatient (BNV) | payer MEDICARE, SELFPAY | PROVIDERS: Admitting Provider Internal Medicine; Emergency Provider Emergency Medicine; PCP Internal Medicine; Visit Provider Internal Medicine Cardiovascular Disease | DX: I44.0 Atrioventricular block, first degree (principal) | CPT/HCPCS: 93010 ==

== ENCOUNTER → 2025-05-15 21:15 | Outpatient (BNV) | payer MEDICARE, SELFPAY | PROVIDERS: PCP Internal Medicine; Visit Provider Student in an Organized Health Care Education/Training Program | DX: I63.81 Other cerebral infarction due to occlusion or stenosis of small artery (principal) | CPT/HCPCS: 70450 ==

== ENCOUNTER 2025-05-16 03:50 | Outpatient (BNV) | payer MEDICARE, SELFPAY | END 2025-05-16 09:35 | PROVIDERS: Admitting Provider Internal Medicine; Emergency Provider Emergency Medicine; PCP Internal Medicine; Visit Provider Radiology Diagnostic Radiology | DX: I65.23 Occlusion and stenosis of bilateral carotid arteries (principal) | CPT/HCPCS: 93880 ==

== ENCOUNTER → 2025-05-16 03:50 | Outpatient (BNV) | payer MEDICARE, SELFPAY | PROVIDERS: Admitting Provider Internal Medicine; Emergency Provider Emergency Medicine; PCP Internal Medicine; Visit Provider Psychiatry & Neurology Neurology | DX: R42 Dizziness and giddiness (principal); D32.9 Benign neoplasm of meninges, unspecified; R29.90 Unspecified symptoms and signs involving the nervous system | CPT/HCPCS: 99223 ==

== ENCOUNTER → 2025-05-16 03:50 | Outpatient (BNV) | payer MEDICARE, SELFPAY | PROVIDERS: Admitting Provider Internal Medicine; Emergency Provider Emergency Medicine; PCP Internal Medicine; Visit Provider Physician Assistant | DX: R42 Dizziness and giddiness (principal); R29.90 Unspecified symptoms and signs involving the nervous system | CPT/HCPCS: 99223; 99239; 99499 ==